=== PATIENT | female | born 1970 | race African-American/Black ===

== ENCOUNTER 2017-03-08 11:01 | Inpatient (IN) | payer BC, MEDICAID ==
[~2017-03-08] VITALS: Ht 162.6 cm; Wt 64.9 kg
[~2017-03-08 11:01] MED LIST: ASPI-1159 PO; ATIVAN PO; BUSP10TA3 PO; CARV12.545 PO; DOCU-138 PO; FURO40TA5 PO; LEVO50TA PO; LISI2.5T47 PO; PARO40TA PO; SPIR50TA26 PO; VENL-179 PO
[2017-03-08] MEDS ORDERED: SODIUM CHLORIDE 0.9% 1,000 ML IV ONE (11:09)
[2017-03-08] MEDS ORDERED: LEVOFLOXACIN 500MG PREMIX 100 ML IV ONE (11:15)
[2017-03-08] MEDS ORDERED: SODIUM CHLORIDE 0.9% 1000ML BAG (SEPSIS BOLUS) IV ONE (11:15)
[2017-03-08 11:36] LABS: BASOPHILS % 0.6 % (0.0-2.0); HEMATOCRIT. 33.7 % (36.0-48.0); HEMOGLOBIN. 11.6 g/dL (12.0-16.0); LYMPHOCYTES % 31.1 % (20.0-50.0); MEAN CORPUSCULAR HEMOGLOBIN 32.7 pg (28.0-32.0); MEAN CORPUSCULAR VOLUME 95.4 fL (81.0-99.0); MEAN PLATELET VOLUME 8.4 fl (7.4-10.4); MONOCYTES % 6.3 % (2.0-8.0); PLATELET 207 x1000/uL (130-400); RED BLOOD CELL COUNT 3.54 mill/uL (4.2-5.4); RED CELL DISTRIBUTION WIDTH 12.5 % (11.6-14.6)
[2017-03-08 11:43] LABS: HCG SCREEN NEGATIVE
[2017-03-08 11:44] LABS: CLARITY URINE CLOUDY (CLEAR); COLOR URINE YELLOW (YELLOW); GLUCOSE URINE NEGATIVE (NEGATIVE); KETONES URINE NEGATIVE (NEGATIVE); LEUKOCYTE ESTERASE URINE 1+ (NEGATIVE); NITRITE URINE NEGATIVE (NEGATIVE); OCCULT BLOOD URINE NEGATIVE (NEGATIVE); PROTEIN URINE TRACE (NEGATIVE); SPECIFIC GRAVITY URINE 1.029 (1.005-1.030)
[2017-03-08 11:45] LABS: INR 1.1; PARTIAL THROMBOPLASTIN TIME 28.6 sec (23.4-31.0); PROTHROMBIN TIME 10.9 sec (9.4-11.6)
[2017-03-08 11:46] LABS: CARBON DIOXIDE 27 mEq/L (21-32); CHLORIDE 110 mEq/L (98-107)
[2017-03-08 11:52] LABS: CREATINE KINASE 67 IU/L (26-192); CREATINE KINASE MB FRACTION < 0.5 ng/mL (0.5-3.6); TROPONIN I < 0.02 ng/mL (0.00-0.04)
[2017-03-08] MEDS ORDERED: FUROSEMIDE 20MG/2ML VIAL IVP ONE (12:15)
[2017-03-08] MEDS ORDERED: ONDANSETRON HCL 4MG/2ML VIAL IV ONE (12:30)
[2017-03-08] MEDS ORDERED: HYDROCODONE/ACETAMINOPHEN 5/325MG TABLET PO ONE (12:30)
[2017-03-08 18:11] VITALS: BP 153/76
[2017-03-08 18:15] VITALS: BP 153/76
[2017-03-08 19:41] VITALS: BP 136/80
[2017-03-08 20:00] VITALS: BP 136/80
[2017-03-08] MEDS: LORAZEPAM 2MG/ML CPJ IV PRN (21:00)
[2017-03-08] MEDS: MORPHINE SULFATE 2 MG/ML CPJ (NOT FOR IM USE) IV PRN (21:02)
[2017-03-08 22:00] VITALS: BP 102/49
[2017-03-08] MEDS ORDERED: ENOXAPARIN 40MG/0.4ML SYR SUBCUT SCH (22:30)
[2017-03-08] MEDS ORDERED: FUROSEMIDE 40MG/4ML VIAL IVP SCH (22:30)
[2017-03-08] MEDS ORDERED: IPRATROPIUM/ALBUTEROL 0.5-3(2.5)MG/3ML NEB INH PRN (22:30)
[2017-03-09] VITALS (7 sets, daily range): BP systolic 101–138; BP diastolic 52–76
[2017-03-09] MEDS ORDERED: DEXTROSE 50% WATER 50ML SYRINGE IV PRN
[2017-03-09 06:42] LABS: BASOPHILS % 0.4 % (0.0-2.0); EOSINOPHILS % 2.3 % (0.0-5.0); HEMATOCRIT. 30.8 % (36.0-48.0); HEMOGLOBIN. 10.6 g/dL (12.0-16.0); LYMPHOCYTES % 32.1 % (20.0-50.0); MEAN CORPUSCULAR HEMOGLOBIN 32.9 pg (28.0-32.0); MEAN CORPUSCULAR VOLUME 95.5 fL (81.0-99.0); MEAN PLATELET VOLUME 8.5 fl (7.4-10.4); MONOCYTES % 6.9 % (2.0-8.0); NEUTROPHILS % 58.3 % (40.0-76.0); PLATELET 192 x1000/uL (130-400); RED BLOOD CELL COUNT 3.23 mill/uL (4.2-5.4); RED CELL DISTRIBUTION WIDTH 12.5 % (11.6-14.6)
[2017-03-09 07:23] LABS: CARBON DIOXIDE 24 mEq/L (21-32); CHLORIDE 110 mEq/L (98-107); CREATINE KINASE 58 IU/L (26-192); CREATINE KINASE MB FRACTION < 0.5 ng/mL (0.5-3.6); TROPONIN I < 0.02 ng/mL (0.00-0.04)
[2017-03-09] MEDS ORDERED: LEVOTHYROXINE SODIUM 50MCG TABLET PO SCH (07:30)
[2017-03-09] MEDS: BLOOD SUGAR DIAGNOSTIC STRIP TEST SCH ×2 (07:52→12:02)
[2017-03-09] MEDS: MORPHINE SULFATE 2 MG/ML CPJ (NOT FOR IM USE) IV PRN ×2 (07:54→12:16)
[2017-03-09] MEDS: LORAZEPAM 2MG/ML CPJ IV PRN (07:58)
[2017-03-09] MEDS: INSULIN LISPRO 100 UNITS/ML SUBCUT SCH ×2 (08:00→12:27)
[2017-03-09] MEDS ORDERED: LISINOPRIL 2.5MG TABLET PO SCH (09:00)
[2017-03-09] MEDS ORDERED: SPIRONOLACTONE 50MG TABLET PO SCH (09:00)
[2017-03-09] MEDS ORDERED: BUSPIRONE HCL 10MG TABLET PO SCH (09:00)
[2017-03-09] MEDS ORDERED: ASPIRIN 81MG EC TABLET PO SCH (09:00)
[2017-03-09] MEDS ORDERED: DOCUSATE SODIUM 100MG CAPSULE PO SCH (09:00)
[2017-03-09] MEDS ORDERED: VENLAFAXINE HCL 37.5MG TABLET PO SCH (09:00)
[2017-03-09] MEDS ORDERED: FUROSEMIDE 40MG/4ML VIAL IVP SCH (09:00)
[2017-03-09] MEDS ORDERED: CARVEDILOL 12.5MG TABLET PO SCH (09:00)
[2017-03-09] MEDS ORDERED: POTASSIUM CHLORIDE 10MEQ TABLET SR PO SCH (10:00)
[2017-03-09] MEDS ORDERED: POTASSIUM CHLORIDE 20MEQ TABLET SR PO SCH (10:00)
[2017-03-09] MEDS ORDERED: LEVOFLOXACIN 500MG PREMIX 100 ML IV SCH (12:00)
== END 2017-03-09 15:00 | disposition home or self-care (01) | DRG 194 ==
LOC: EDBEDREQSVC 11:39 → EDBEDREQ 11:39 → ER 11:52 → EDBEDREQ 12:09 → EDBEDREQTM 12:09 → ENRESERV 16:41 → 5EST 18:04
PROVIDERS: ADMIT Internal Medicine; ATTEND Internal Medicine
DX: I11.0 Hypertensive heart disease with heart failure (principal); J18.9 Pneumonia, unspecified organism; I50.43 Acute on chronic combined systolic (congestive) and diastolic (congestive) heart failure; N39.0 Urinary tract infection, site not specified; E03.9 Hypothyroidism, unspecified; J40 Bronchitis, not specified as acute or chronic; E11.9 Type 2 diabetes mellitus without complications; F32.9 Major depressive disorder, single episode, unspecified; F41.9 Anxiety disorder, unspecified; Z82.49 Family history of ischemic heart disease and other diseases of the circulatory system; Z87.01 Personal history of pneumonia (recurrent); Z88.8 Allergy status to other drugs, medicaments and biological substances; Z79.899 Other long term (current) drug therapy; Z79.02 Long term (current) use of antithrombotics/antiplatelets; Z79.82 Long term (current) use of aspirin
CPT/HCPCS: 36415; 71010; 80048; 81001; 82550; 82553; 82962; 83605; 83880; 84484; 84703; 85025; 85610; 85730; 87040; 87086; 93005; 93970; 96361; 96365; 96366; 96375; 99285; J1650; J1940; J1956; J2060; J2270; J2405; J7030; J7050

== ENCOUNTER 2017-03-10 09:35 | Inpatient (IN) | payer MEDICAID ==
[~2017-03-10] VITALS: Ht 157.5 cm; Wt 66.3 kg
[2017-03-10] VITALS (17 sets, daily range): BP systolic 92–128; BP diastolic 48–72
[2017-03-10] MEDS ORDERED: SODIUM CHLORIDE 0.9% 1,000 ML IV ONE (09:58)
[2017-03-10] MEDS ORDERED: ACTIVATED CHARCOAL 50 G/240 ML TUBE PO ONE (10:00)
[2017-03-10] MEDS ORDERED: ONDANSETRON HCL 4MG/2ML VIAL IV ONE (10:00)
[2017-03-10 10:17] LABS: BASOPHILS % 0.5 % (0.0-2.0); EOSINOPHILS % 1.8 % (0.0-5.0); HEMATOCRIT. 33.5 % (36.0-48.0); HEMOGLOBIN. 11.5 g/dL (12.0-16.0); LYMPHOCYTES % 29.1 % (20.0-50.0); MEAN CORPUSCULAR HEMOGLOBIN 32.8 pg (28.0-32.0); MEAN CORPUSCULAR VOLUME 95.6 fL (81.0-99.0); MEAN PLATELET VOLUME 7.8 fl (7.4-10.4); MONOCYTES % 6.5 % (2.0-8.0); NEUTROPHILS % 62.1 % (40.0-76.0); PLATELET 207 x1000/uL (130-400); RED BLOOD CELL COUNT 3.51 mill/uL (4.2-5.4); RED CELL DISTRIBUTION WIDTH 12.7 % (11.6-14.6)
[2017-03-10 10:30] LABS: CARBON DIOXIDE 26 mEq/L (21-32); CHLORIDE 109 mEq/L (98-107); ETHANOL BLOOD < 10 mg/dL
[2017-03-10 10:44] LABS: HCG SCREEN NEGATIVE
[2017-03-10 10:53] LABS: CREATINE KINASE 68 IU/L (26-192); TROPONIN I < 0.02 ng/mL (0.00-0.04)
[2017-03-10 10:54] LABS: CREATINE KINASE MB FRACTION < 0.5 ng/mL (0.5-3.6)
[2017-03-10 11:42] LABS: *AMPHETAMINES SCREEN URINE NEGATIVE (NEGATIVE); *BARBITURATES SCREEN URINE NEGATIVE (NEGATIVE); *BENZODIAZEPINES SCREEN URINE PRESUMTIVE POSITIVE (NEGATIVE); *COCAINE SCREEN URINE NEGATIVE (NEGATIVE); CANNABINOID URINE SCREEN NEGATIVE (NEGATIVE); METHADONE URINE SCREEN NEGATIVE (NEGATIVE); OPIATES URINE SCREEN PRESUMTIVE POSITIVE (NEGATIVE); PHENCYCLIDINE URINE SCREEN NEGATIVE (NEGATIVE)
[2017-03-10] MEDS ORDERED: POTASSIUM CHLORIDE 20MEQ/PACKET PO NR (15:56)
[2017-03-11] VITALS (30 sets, daily range): BP systolic 87–119; BP diastolic 34–72
[2017-03-11] MEDS ORDERED: FUROSEMIDE 40MG TABLET PO NR
[2017-03-11] MEDS: HYDROCODONE/ACETAMINOPHEN 5/325MG TABLET PO PRN ×3 (00:12→16:06)
[2017-03-11 05:00] LABS: BASOPHILS % 0.4 % (0.0-2.0); EOSINOPHILS % 2.5 % (0.0-5.0); HEMATOCRIT. 30.7 % (36.0-48.0); HEMOGLOBIN. 10.7 g/dL (12.0-16.0); LYMPHOCYTES % 39.5 % (20.0-50.0); MEAN CORPUSCULAR HEMOGLOBIN 33.6 pg (28.0-32.0); MEAN CORPUSCULAR VOLUME 96.6 fL (81.0-99.0); MEAN PLATELET VOLUME 8.5 fl (7.4-10.4); MONOCYTES % 7.2 % (2.0-8.0); NEUTROPHILS % 50.4 % (40.0-76.0); PLATELET 183 x1000/uL (130-400); RED BLOOD CELL COUNT 3.18 mill/uL (4.2-5.4); RED CELL DISTRIBUTION WIDTH 12.8 % (11.6-14.6)
[2017-03-11 05:17] LABS: CARBON DIOXIDE 27 mEq/L (21-32); CHLORIDE 110 mEq/L (98-107)
[2017-03-11] MEDS ORDERED: LEVOTHYROXINE SODIUM 50MCG TABLET PO SCH (07:50)
[2017-03-11] MEDS: ASPIRIN 81MG EC TABLET PO SCH (08:41)
[2017-03-11] MEDS: FUROSEMIDE 40MG TABLET PO SCH (08:42)
[2017-03-11] MEDS ORDERED: SPIRONOLACTONE 50MG TABLET PO SCH (09:00)
[2017-03-11] MEDS: LISINOPRIL 2.5MG TABLET PO SCH (09:00)
[2017-03-11] MEDS: CARVEDILOL 12.5MG TABLET PO SCH ×2 (09:00→17:00)
[2017-03-11] MEDS ORDERED: LEVOTHYROXINE SODIUM 50MCG TABLET PO NR (10:00)
[2017-03-11] MEDS: LEVOFLOXACIN 500MG TABLET PO SCH (11:14)
[2017-03-11] MEDS ORDERED: LORAZEPAM 1MG TABLET PO PRN (21:15)
[2017-03-11] MEDS ORDERED: PAROXETINE HCL 40 MG PO SCH (21:15)
[2017-03-11] MEDS: LORAZEPAM 1MG TABLET PO PRN (21:54)
[2017-03-12] VITALS (12 sets, daily range): BP systolic 92–147; BP diastolic 32–94
[2017-03-12] MEDS: VENLAFAXINE HCL 37.5MG TABLET PO SCH ×2 (01:10→07:56)
[2017-03-12] MEDS: LEVOTHYROXINE SODIUM 100MCG TABLET PO SCH (06:29)
[2017-03-12] MEDS: FAMOTIDINE 20MG/2ML VIAL IV SCH (07:55)
[2017-03-12] MEDS: CARVEDILOL 12.5MG TABLET PO SCH (07:56)
[2017-03-12] MEDS: PAROXETINE HCL 20MG TABLET PO SCH (07:56)
[2017-03-12] MEDS: ASPIRIN 81MG EC TABLET PO SCH (07:56)
[2017-03-12] MEDS: ENOXAPARIN 40MG/0.4ML SYR SUBCUT SCH (07:57)
[2017-03-12] MEDS: FUROSEMIDE 40MG TABLET PO SCH (08:48)
[2017-03-12] MEDS: LISINOPRIL 2.5MG TABLET PO SCH (08:50)
[2017-03-12] MEDS: LEVOFLOXACIN 500MG TABLET PO SCH (11:45)
[2017-03-12] MEDS: LORAZEPAM 1MG TABLET PO PRN ×2 (11:47→22:50)
[2017-03-12] MEDS: HYDROCODONE/ACETAMINOPHEN 5/325MG TABLET PO PRN (16:08)
[2017-03-12] MEDS: CARVEDILOL 3.125 MG TABLET PO SCH (20:47)
[2017-03-12] MEDS: DIPHENHYDRAMINE 50MG/ML VIAL IV PRN (20:54)
[2017-03-13] VITALS (13 sets, daily range): BP systolic 102–136; BP diastolic 48–74
[2017-03-13] MEDS: LEVOTHYROXINE SODIUM 100MCG TABLET PO SCH (05:39)
[2017-03-13 06:58] LABS: BASOPHILS % 0.5 % (0.0-2.0); EOSINOPHILS % 2.5 % (0.0-5.0); HEMATOCRIT. 31.8 % (36.0-48.0); LYMPHOCYTES % 27.6 % (20.0-50.0); MEAN CORPUSCULAR HEMOGLOBIN 32.9 pg (28.0-32.0); MEAN CORPUSCULAR VOLUME 95.2 fL (81.0-99.0); MEAN PLATELET VOLUME 8.4 fl (7.4-10.4); NEUTROPHILS % 60.4 % (40.0-76.0); PLATELET 188 x1000/uL (130-400); RED BLOOD CELL COUNT 3.34 mill/uL (4.2-5.4); RED CELL DISTRIBUTION WIDTH 12.7 % (11.6-14.6)
[2017-03-13 07:41] LABS: CHLORIDE 110 mEq/L (98-107)
[2017-03-13 07:53] LABS: CARBON DIOXIDE 23 mEq/L (21-32)
[2017-03-13] MEDS: FAMOTIDINE 20MG/2ML VIAL IV SCH (08:21)
[2017-03-13] MEDS: DIPHENHYDRAMINE 50MG/ML VIAL IV PRN ×3 (08:21→21:07)
[2017-03-13] MEDS: ASPIRIN 81MG EC TABLET PO SCH (08:22)
[2017-03-13] MEDS: VENLAFAXINE HCL 37.5MG TABLET PO SCH (08:22)
[2017-03-13] MEDS: PAROXETINE HCL 20MG TABLET PO SCH (08:23)
[2017-03-13] MEDS: CARVEDILOL 3.125 MG TABLET PO SCH ×2 (08:23→21:00)
[2017-03-13] MEDS: FUROSEMIDE 40MG TABLET PO SCH (08:23)
[2017-03-13] MEDS: ENOXAPARIN 40MG/0.4ML SYR SUBCUT SCH (08:25)
[2017-03-13] MEDS: LISINOPRIL 2.5MG TABLET PO SCH (08:33)
[2017-03-13] MEDS: LEVOFLOXACIN 500MG TABLET PO SCH (11:04)
[2017-03-13] MEDS ORDERED: POTASSIUM CHLORIDE 20MEQ TABLET SR PO NR (11:30)
[2017-03-13] MEDS: SPIRONOLACTONE 25MG TABLET PO SCH (12:14)
[2017-03-13] MEDS: LORAZEPAM 1MG TABLET PO PRN ×2 (12:40→22:54)
[2017-03-13] MEDS: HYDROCODONE/ACETAMINOPHEN 5/325MG TABLET PO PRN (17:46)
[2017-03-14] VITALS (10 sets, daily range): BP systolic 102–126; BP diastolic 45–94
[2017-03-14] MEDS: DIPHENHYDRAMINE 50MG/ML VIAL IV PRN ×3 (03:11→18:06)
[2017-03-14] MEDS: LEVOTHYROXINE SODIUM 100MCG TABLET PO SCH (05:12)
[2017-03-14 06:58] LABS: EOSINOPHILS % 2.6 % (0.0-5.0); HEMATOCRIT. 32.3 % (36.0-48.0); HEMOGLOBIN. 11.1 g/dL (12.0-16.0); LYMPHOCYTES % 30.8 % (20.0-50.0); MEAN CORPUSCULAR HEMOGLOBIN 33.1 pg (28.0-32.0); MEAN CORPUSCULAR VOLUME 96.6 fL (81.0-99.0); MEAN PLATELET VOLUME 8.5 fl (7.4-10.4); MONOCYTES % 7.8 % (2.0-8.0); NEUTROPHILS % 57.8 % (40.0-76.0); PLATELET 190 x1000/uL (130-400); RED BLOOD CELL COUNT 3.34 mill/uL (4.2-5.4); RED CELL DISTRIBUTION WIDTH 12.8 % (11.6-14.6)
[2017-03-14 07:44] LABS: CARBON DIOXIDE 24 mEq/L (21-32); CHLORIDE 109 mEq/L (98-107)
[2017-03-14] MEDS: FAMOTIDINE 20MG/2ML VIAL IV SCH (08:28)
[2017-03-14] MEDS: VENLAFAXINE HCL 37.5MG TABLET PO SCH (08:29)
[2017-03-14] MEDS: ASPIRIN 81MG EC TABLET PO SCH (08:30)
[2017-03-14] MEDS: PAROXETINE HCL 20MG TABLET PO SCH (08:30)
[2017-03-14] MEDS: ENOXAPARIN 40MG/0.4ML SYR SUBCUT SCH (08:31)
[2017-03-14] MEDS: SPIRONOLACTONE 25MG TABLET PO SCH (08:32)
[2017-03-14] MEDS: LISINOPRIL 2.5MG TABLET PO SCH (08:32)
[2017-03-14] MEDS: CARVEDILOL 3.125 MG TABLET PO SCH (08:32)
[2017-03-14] MEDS ORDERED: FUROSEMIDE 40MG TABLET PO SCH (09:00)
[2017-03-14] MEDS ORDERED: POTASSIUM CHLORIDE 20MEQ TABLET SR PO SCH (09:00)
[2017-03-14] MEDS: LORAZEPAM 1MG TABLET PO PRN (11:20)
[2017-03-14] MEDS: LEVOFLOXACIN 500MG TABLET PO SCH (11:20)
== END 2017-03-14 20:46 | DRG 812 ==
LOC: ER 09:50 → CVICU 10:46 → EDBEDREQ 10:49 → ENRESERV 13:11 → 3WST 03-11 18:24 → 5WST 03-14 14:45
PROVIDERS: ADMIT Internal Medicine; ATTEND Internal Medicine
DX: T42.4X1A Poisoning by benzodiazepines, accidental (unintentional), initial encounter (principal); I50.43 Acute on chronic combined systolic (congestive) and diastolic (congestive) heart failure; I95.9 Hypotension, unspecified; I42.9 Cardiomyopathy, unspecified; I11.0 Hypertensive heart disease with heart failure; I08.1 Rheumatic disorders of both mitral and tricuspid valves; E11.9 Type 2 diabetes mellitus without complications; E87.6 Hypokalemia; E03.9 Hypothyroidism, unspecified; F41.9 Anxiety disorder, unspecified; F32.9 Major depressive disorder, single episode, unspecified; Z88.8 Allergy status to other drugs, medicaments and biological substances; Z79.82 Long term (current) use of aspirin; Z79.899 Other long term (current) drug therapy; Z87.01 Personal history of pneumonia (recurrent); Z87.440 Personal history of urinary (tract) infections; Y92.89 Other specified places as the place of occurrence of the external cause; Z91.5 Personal history of self-harm; T43.221A Poisoning by selective serotonin reuptake inhibitors, accidental (unintentional), initial encounter
CPT/HCPCS: 36415; 71010; 80048; 80305; 80307; 80329; 82550; 82553; 82962; 83735; 83880; 84443; 84484; 84703; 85025; 87086; 93005; 96361; 96374; 99291; G0482; J1200; J1650; J2405; J3490; J7030

== ENCOUNTER 2017-08-11 12:37 | Emergency (ER) | payer MEDICAID, OTHER ==
[~2017-08-11] VITALS: Ht 157.5 cm; Wt 62.0 kg
[~2017-08-11 12:37] MED LIST changes: +ALBU18HF2 IH; -ATIVAN PO; +BUDE0.5A5 IH; +DIAZ10TA PO; +DOXE25CA3 PO; +IBUP-2030 PO; +IPRA3AMP9 HHN; +NITR0.4T49 SL; +P20 PO; -VENL-179 PO; +VENL225T3 PO
[2017-08-11 16:08] LABS: BASOPHILS % 0.9 % (0.0-2.0); EOSINOPHILS % 0.6 % (0.0-5.0); HEMATOCRIT. 35.6 % (36.0-48.0); HEMOGLOBIN. 12.2 g/dL (12.0-16.0); LYMPHOCYTES % 32.3 % (20.0-50.0); MEAN CORPUSCULAR HEMOGLOBIN 33.7 pg (28.0-32.0); MEAN CORPUSCULAR VOLUME 98.6 fL (81.0-99.0); MEAN PLATELET VOLUME 7.8 fl (7.4-10.4); MONOCYTES % 8.4 % (2.0-8.0); NEUTROPHILS % 57.8 % (40.0-76.0); PLATELET 240 x1000/uL (130-400); RED BLOOD CELL COUNT 3.61 mill/uL (4.2-5.4); RED CELL DISTRIBUTION WIDTH 14.6 % (11.6-14.6)
[2017-08-11 16:14] LABS: INR 0.9; PROTHROMBIN TIME 9.6 sec (9.4-11.6)
[2017-08-11 16:23] LABS: CARBON DIOXIDE 25 mEq/L (21-32); CHLORIDE 109 mEq/L (98-107); TROPONIN I < 0.02 ng/mL (0.00-0.04)
[2017-08-11] MEDS ORDERED: IBUPROFEN 600MG TABLET PO ONE (19:15)
[2017-08-11 19:55] VITALS: BP 139/80
== END 2017-08-11 21:16 | disposition home or self-care (01) ==
LOC: ER 13:58
DX: R07.9 Chest pain, unspecified (principal); R06.02 Shortness of breath; F41.9 Anxiety disorder, unspecified; I11.0 Hypertensive heart disease with heart failure; I50.9 Heart failure, unspecified; J44.9 Chronic obstructive pulmonary disease, unspecified; E11.9 Type 2 diabetes mellitus without complications; E03.9 Hypothyroidism, unspecified; F32.9 Major depressive disorder, single episode, unspecified; F14.10 Cocaine abuse, uncomplicated; F17.200 Nicotine dependence, unspecified, uncomplicated; Z79.82 Long term (current) use of aspirin; Z88.8 Allergy status to other drugs, medicaments and biological substances
CPT/HCPCS: 36415; 71045; 80053; 83605; 83880; 84484; 85025; 85379; 85610; 87040; 93005; 99285

== ENCOUNTER 2017-12-29 15:54 | Inpatient (IN) | payer MEDICAID ==
[~2017-12-29] VITALS: Ht 157.5 cm; Wt 68.9 kg
[~2017-12-29 15:54] MED LIST changes: +ATOR40TA70 PO; +BACL-141 PO; -DOCU-138 PO; +HYDR10SY11 PO; -IBUP-2030 PO; -NITR0.4T49 SL; -PARO40TA PO; -SPIR50TA26 PO; +SPIR50TA5 PO
[2017-12-29 16:41] LABS: BASOPHILS % 0.6 % (0.0-2.0); EOSINOPHILS % 5.5 % (0.0-5.0); HEMATOCRIT. 34.5 % (36.0-48.0); HEMOGLOBIN. 11.9 g/dL (12.0-16.0); LYMPHOCYTES % 33.2 % (20.0-50.0); MEAN CORPUSCULAR VOLUME 95.6 fL (81.0-99.0); MEAN PLATELET VOLUME 7.9 fl (7.4-10.4); MONOCYTES % 7.8 % (2.0-8.0); NEUTROPHILS % 52.9 % (40.0-76.0); PLATELET 231 x1000/uL (130-400); RED BLOOD CELL COUNT 3.61 mill/uL (4.2-5.4); RED CELL DISTRIBUTION WIDTH 13.1 % (11.6-14.6)
[2017-12-29] MEDS ORDERED: ASPIRIN 81MG TABLET PO STA (16:41)
[2017-12-29 16:42] LABS: CHLORIDE 112 mEq/L (98-107)
[2017-12-29] MEDS ORDERED: NITROGLYCERIN 0.4MG TABLET SL SL PRN (16:45)
[2017-12-29 16:46] LABS: PARTIAL THROMBOPLASTIN TIME 25.3 sec (23.4-31.0); PROTHROMBIN TIME 10.7 sec (9.4-11.6)
[2017-12-29] MEDS ORDERED: VANCOMYCIN 1 G PREMIX 200 ML IV ONE (18:45)
[2017-12-29] MEDS ORDERED: PIPERACILLIN/TAZ 3.375G PREMIX 50 ML IV ONE (18:45)
[2017-12-29] MEDS ORDERED: SODIUM CHLORIDE 0.9% 1000ML BAG (SEPSIS BOLUS) IV ONE (18:45)
[2017-12-29] MEDS ORDERED: ONDANSETRON HCL 4MG/2ML VIAL IV STA (18:58)
[2017-12-29] MEDS ORDERED: MORPHINE SULFATE 4 MG/ML CPJ (NOT FOR IM USE) IV STA (18:58)
[2017-12-29] MEDS ORDERED: MAGNESIUM/ALUMINUM HYDROXIDE/SIMETHICONE 30ML UDC PO PRN (19:30)
[2017-12-29] MEDS ORDERED: CLONIDINE 0.1MG TABLET PO PRN (19:30)
[2017-12-29] MEDS ORDERED: IPRATROPIUM/ALBUTEROL 0.5-3(2.5)MG/3ML NEB INH PRN (19:30)
[2017-12-29] MEDS ORDERED: ACETAMINOPHEN 325MG TABLET PO PRN (19:30)
[2017-12-29] MEDS ORDERED: DOCUSATE SODIUM 100MG CAPSULE PO PRN (19:30)
[2017-12-29] MEDS ORDERED: ONDANSETRON HCL 4MG/2ML VIAL IV PRN (19:30)
[2017-12-29 19:33] LABS: CLARITY URINE CLOUDY (CLEAR); COLOR URINE YELLOW (YELLOW); KETONES URINE NEGATIVE (NEGATIVE); LEUKOCYTE ESTERASE URINE NEGATIVE (NEGATIVE); NITRITE URINE NEGATIVE (NEGATIVE); OCCULT BLOOD URINE 3+ (NEGATIVE); PROTEIN URINE NEGATIVE (NEGATIVE); SPECIFIC GRAVITY URINE 1.029 (1.005-1.030)
[2017-12-29] MEDS ORDERED: KETOROLAC 30MG/ML VIAL IV ONE (20:15)
[2017-12-29 20:28] LABS: CHLORIDE 114 mEq/L (98-107)
[2017-12-29] MEDS ORDERED: MORPHINE SULFATE 4 MG/ML CPJ (NOT FOR IM USE) IV ONE (21:15)
[2017-12-30] VITALS: BP 110/72
[2017-12-30] MEDS ORDERED: LEVO125T PO (00:01)
[2017-12-30] MEDS ORDERED: FURO20TA4 PO (00:01)
[2017-12-30] MEDS ORDERED: BUSP15TA3 PO (00:01)
[2017-12-30] MEDS ORDERED: DOCU-138 PO (00:06)
[2017-12-30] MEDS ORDERED: POTA10TA2 PO (00:06)
[2017-12-30] MEDS ORDERED: HYDR-4001 PO (00:06)
[2017-12-30] MEDS ORDERED: ONDA4SOL2 MT (00:06)
[2017-12-30] MEDS ORDERED: IBUP-2030 PO (00:06)
[2017-12-30] MEDS ORDERED: DEXTROSE 50% WATER 50ML SYRINGE IV PRN (00:30)
[2017-12-30 01:53] LABS: *AMPHETAMINES SCREEN URINE NEGATIVE (NEGATIVE); *BARBITURATES SCREEN URINE NEGATIVE (NEGATIVE)
[2017-12-30 01:54] LABS: *COCAINE SCREEN URINE NEGATIVE (NEGATIVE); CANNABINOID URINE SCREEN NEGATIVE (NEGATIVE); METHADONE URINE SCREEN NEGATIVE (NEGATIVE); PHENCYCLIDINE URINE SCREEN NEGATIVE (NEGATIVE)
[2017-12-30 02:09] LABS: *BENZODIAZEPINES SCREEN URINE PRESUMTIVE POSITIVE (NEGATIVE); OPIATES URINE SCREEN PRESUMTIVE POSITIVE (NEGATIVE)
[2017-12-30 04:00] VITALS: BP 97/58
[2017-12-30] MEDS: LORAZEPAM 0.5MG TABLET PO PRN ×4 (05:26→20:49)
[2017-12-30] MEDS: HYDROCODONE/ACETAMINOPHEN 5/325MG TABLET PO PRN ×2 (05:28→10:04)
[2017-12-30] MEDS: BLOOD SUGAR DIAGNOSTIC STRIP TEST SCH ×4 (05:28→21:02)
[2017-12-30 07:42] LABS: BASOPHILS % 0.4 % (0.0-2.0); EOSINOPHILS % 5.6 % (0.0-5.0); HEMATOCRIT. 28.7 % (36.0-48.0); HEMOGLOBIN. 9.8 g/dL (12.0-16.0); MEAN CORPUSCULAR HEMOGLOBIN 32.9 pg (28.0-32.0); MEAN CORPUSCULAR VOLUME 96.4 fL (81.0-99.0); MEAN PLATELET VOLUME 8.2 fl (7.4-10.4); MONOCYTES % 7.8 % (2.0-8.0); NEUTROPHILS % 55.2 % (40.0-76.0); PLATELET 167 x1000/uL (130-400); RED BLOOD CELL COUNT 2.97 mill/uL (4.2-5.4); RED CELL DISTRIBUTION WIDTH 13.2 % (11.6-14.6)
[2017-12-30 08:00] VITALS: BP 106/71
[2017-12-30] MEDS: INSULIN LISPRO 100 UNITS/ML SUBCUT SCH ×4 (08:10→21:00)
[2017-12-30 08:51] LABS: CREATINE KINASE 44 IU/L (26-192); T4 FREE 0.69 ng/dL (0.76-1.46)
[2017-12-30 08:56] LABS: HDL CHOLESTEROL 18 mg/dL (40-59)
[2017-12-30 08:59] LABS: LDL CHOLESTEROL 83 mg/dL (5-100)
[2017-12-30] MEDS ORDERED: ENOXAPARIN 40MG/0.4ML SYR SUBCUT SCH (09:00)
[2017-12-30 09:02] LABS: CREATINE KINASE MB FRACTION < 0.5 ng/mL (0.5-3.6)
[2017-12-30] MEDS: LISINOPRIL 10MG TABLET PO SCH (11:30)
[2017-12-30 12:00] VITALS: BP_SYST 102; BP_SYST 125; BP_DIAS 66; BP_DIAS 72
[2017-12-30] MEDS: MORPHINE SULFATE 4 MG/ML CPJ (NOT FOR IM USE) IV PRN ×2 (15:12→20:49)
[2017-12-30 16:00] VITALS: BP 125/72
[2017-12-30 18:06] LABS: CREATINE KINASE 47 IU/L (26-192)
[2017-12-30 18:07] LABS: CREATINE KINASE MB FRACTION < 0.5 ng/mL (0.5-3.6)
[2017-12-30 20:00] VITALS: BP 114/61
[2017-12-30] MEDS: ATORVASTATIN CALCIUM 40MG TABLET PO SCH (20:50)
[2017-12-31] VITALS (7 sets, daily range): BP systolic 101–133; BP diastolic 63–84
[2017-12-31] MEDS: MORPHINE SULFATE 4 MG/ML CPJ (NOT FOR IM USE) IV PRN ×5 (00:36→20:17)
[2017-12-31] MEDS: BLOOD SUGAR DIAGNOSTIC STRIP TEST SCH ×4 (06:56→20:13)
[2017-12-31 07:26] LABS: BASOPHILS % 0.5 % (0.0-2.0); EOSINOPHILS % 6.4 % (0.0-5.0); HEMATOCRIT. 29.4 % (36.0-48.0); HEMOGLOBIN. 10.1 g/dL (12.0-16.0); LYMPHOCYTES % 35.1 % (20.0-50.0); MEAN CORPUSCULAR HEMOGLOBIN 32.9 pg (28.0-32.0); MEAN CORPUSCULAR VOLUME 95.8 fL (81.0-99.0); MEAN PLATELET VOLUME 8.6 fl (7.4-10.4); MONOCYTES % 7.8 % (2.0-8.0); NEUTROPHILS % 50.2 % (40.0-76.0); PLATELET 170 x1000/uL (130-400); RED BLOOD CELL COUNT 3.07 mill/uL (4.2-5.4); RED CELL DISTRIBUTION WIDTH 13.4 % (11.6-14.6)
[2017-12-31] MEDS: INSULIN LISPRO 100 UNITS/ML SUBCUT SCH ×4 (07:32→20:16)
[2017-12-31] MEDS: LEVOTHYROXINE SODIUM 125MCG TABLET PO SCH (07:39)
[2017-12-31 08:01] LABS: CHLORIDE 114 mEq/L (98-107)
[2017-12-31] MEDS: LISINOPRIL 10MG TABLET PO SCH (08:06)
[2017-12-31] MEDS: CARVEDILOL 12.5MG TABLET PO SCH (08:06)
[2017-12-31] MEDS: SPIRONOLACTONE 50MG TABLET PO SCH (08:07)
[2017-12-31] MEDS: LORAZEPAM 0.5MG TABLET PO PRN ×3 (08:15→23:55)
[2017-12-31 08:17] LABS: TOTAL IRON BINDING CAPACITY 299 ug/dL (250-450)
[2017-12-31] MEDS: LEVOFLOXACIN 500MG PREMIX 100 ML IV SCH (10:38)
[2017-12-31] MEDS: ATORVASTATIN CALCIUM 40MG TABLET PO SCH (20:17)
[2018-01-01] MEDS: MORPHINE SULFATE 4 MG/ML CPJ (NOT FOR IM USE) IV PRN ×3 (00:28→08:24)
[2018-01-01 04:24] VITALS: BP 100/55
[2018-01-01] MEDS: BLOOD SUGAR DIAGNOSTIC STRIP TEST SCH (07:18)
[2018-01-01] MEDS: INSULIN LISPRO 100 UNITS/ML SUBCUT SCH (07:18)
[2018-01-01] MEDS: LEVOTHYROXINE SODIUM 125MCG TABLET PO SCH (07:18)
[2018-01-01 07:51] LABS: BASOPHILS % 0.5 % (0.0-2.0); EOSINOPHILS % 6.5 % (0.0-5.0); HEMATOCRIT. 29.7 % (36.0-48.0); HEMOGLOBIN. 10.2 g/dL (12.0-16.0); MEAN CORPUSCULAR HEMOGLOBIN 32.4 pg (28.0-32.0); MEAN CORPUSCULAR VOLUME 94.9 fL (81.0-99.0); MEAN PLATELET VOLUME 8.5 fl (7.4-10.4); MONOCYTES % 6.7 % (2.0-8.0); NEUTROPHILS % 52.3 % (40.0-76.0); PLATELET 189 x1000/uL (130-400); RED BLOOD CELL COUNT 3.13 mill/uL (4.2-5.4); RED CELL DISTRIBUTION WIDTH 13.1 % (11.6-14.6)
[2018-01-01 08:00] VITALS: BP 109/63
[2018-01-01] MEDS: LISINOPRIL 10MG TABLET PO SCH (08:23)
[2018-01-01] MEDS: SPIRONOLACTONE 50MG TABLET PO SCH (08:23)
[2018-01-01] MEDS: CARVEDILOL 12.5MG TABLET PO SCH ×2 (08:23→10:42)
[2018-01-01 08:26] LABS: CHLORIDE 112 mEq/L (98-107)
[2018-01-01] MEDS: LEVOFLOXACIN 500MG PREMIX 100 ML IV SCH (09:04)
[2018-01-01] MEDS: LORAZEPAM 0.5MG TABLET PO PRN (10:31)
[2018-01-01] MEDS ORDERED: POTASSIUM CHLORIDE 10MEQ TABLET SR PO SCH (10:39)
[2018-01-01] MEDS ORDERED: FUROSEMIDE 40MG TABLET PO SCH (10:45)
[2018-01-01 11:36] VITALS: BP 107/62
== END 2018-01-01 12:08 | disposition home or self-care (01) | DRG 139 ==
LOC: ER 16:27 → 7WST 19:04 → EDBEDREQ 19:35 → ENRESERV 20:42
PROVIDERS: ADMIT Internal Medicine; ATTEND Internal Medicine
DX: J18.9 Pneumonia, unspecified organism (principal); I42.9 Cardiomyopathy, unspecified; I11.0 Hypertensive heart disease with heart failure; J44.9 Chronic obstructive pulmonary disease, unspecified; I50.20 Unspecified systolic (congestive) heart failure; E11.9 Type 2 diabetes mellitus without complications; D64.9 Anemia, unspecified; E03.9 Hypothyroidism, unspecified; E78.5 Hyperlipidemia, unspecified; F17.200 Nicotine dependence, unspecified, uncomplicated; F31.9 Bipolar disorder, unspecified; F41.9 Anxiety disorder, unspecified; Z87.01 Personal history of pneumonia (recurrent); Z87.442 Personal history of urinary calculi; Z79.899 Other long term (current) drug therapy; Z79.82 Long term (current) use of aspirin; Z88.8 Allergy status to other drugs, medicaments and biological substances; Z87.440 Personal history of urinary (tract) infections
CPT/HCPCS: 36415; 71045; 80048; 80053; 80061; 80305; 81003; 82550; 82553; 82962; 83540; 83550; 83605; 83735; 83880; 84439; 84443; 84481; 84484; 85025; 85379; 85610; 85730; 87040; 87086; 89055; 93005; 93306; 93970; 96365; 96368; 96375; 96376; 99285; J1650; J1956; J2270; J2405; J2543; J3370; J7030; J7050

== ENCOUNTER 2018-01-25 12:02 | Inpatient (IN) | payer MEDICAID ==
[~2018-01-25] VITALS: Ht 157.5 cm; Wt 62.8 kg
[~2018-01-25 12:02] MED LIST changes: -BUSP10TA3 PO; +BUSP15TA3 PO; +DOCU-138 PO; -DOXE25CA3 PO; +FURO20TA4 PO; -FURO40TA5 PO; +HYDR-4001 PO; -HYDR10SY11 PO; +IBUP-2030 PO; +LEVO125T PO; -LEVO50TA PO; -LISI2.5T47 PO; +ONDA4SOL2 MT; -P20 PO; +POTA10TA2 PO; -VENL225T3 PO
[2018-01-25] MEDS ORDERED: ASPIRIN 81MG TABLET PO STA (12:55)
[2018-01-25 13:10] LABS: BASOPHILS % 0.6 % (0.0-2.0); EOSINOPHILS % 4.4 % (0.0-5.0); HEMATOCRIT. 36.6 % (36.0-48.0); HEMOGLOBIN. 12.4 g/dL (12.0-16.0); LYMPHOCYTES % 27.2 % (20.0-50.0); MEAN CORPUSCULAR HEMOGLOBIN 32.3 pg (28.0-32.0); MEAN CORPUSCULAR VOLUME 95.4 fL (81.0-99.0); MEAN PLATELET VOLUME 8.3 fl (7.4-10.4); MONOCYTES % 8.3 % (2.0-8.0); NEUTROPHILS % 59.5 % (40.0-76.0); PLATELET 181 x1000/uL (130-400); RED BLOOD CELL COUNT 3.84 mill/uL (4.2-5.4); RED CELL DISTRIBUTION WIDTH 12.5 % (11.6-14.6)
[2018-01-25 13:16] LABS: CHLORIDE 112 mEq/L (98-107)
[2018-01-25 13:21] LABS: D-DIMER 0.24 mg/L FEU (<0.50); PARTIAL THROMBOPLASTIN TIME 27.1 sec (23.4-31.0); PROTHROMBIN TIME 10.7 sec (9.4-11.6)
[2018-01-25] MEDS: NITROGLYCERIN 0.4MG TABLET SL SL PRN ×2 (13:31→15:23)
[2018-01-25] MEDS ORDERED: MORPHINE SULFATE 4 MG/ML CPJ (NOT FOR IM USE) IV STA (14:14)
[2018-01-25] MEDS ORDERED: ONDANSETRON HCL 4MG/2ML VIAL IV STA (14:14)
[2018-01-25] MEDS ORDERED: SODIUM CHLORIDE 0.9% 1,000 ML IV ONE (14:51)
[2018-01-25] MEDS ORDERED: ONDANSETRON HCL 4MG/2ML VIAL IV PRN (16:45)
[2018-01-25] MEDS ORDERED: DIAZEPAM 5 MG TABLET PO PRN (16:45)
[2018-01-25] MEDS ORDERED: IPRATROPIUM/ALBUTEROL 0.5-3(2.5)MG/3ML NEB HHN PRN (16:45)
[2018-01-25] MEDS: HYDROCODONE/ACETAMINOPHEN 5/325MG TABLET PO PRN (17:10)
[2018-01-25 18:45] VITALS: BP 110/79
[2018-01-25 19:35] VITALS: BP 98/66
[2018-01-25 20:30] VITALS: BP 98/66
[2018-01-25] MEDS: ATORVASTATIN CALCIUM 40MG TABLET PO SCH (21:36)
[2018-01-26 00:28] VITALS: BP 97/58
[2018-01-26 04:10] VITALS: BP 114/62
[2018-01-26] MEDS: MORPHINE SULFATE 4 MG/ML CPJ (NOT FOR IM USE) IV PRN ×2 (04:15→18:38)
[2018-01-26] MEDS: LEVOTHYROXINE SODIUM 125MCG TABLET PO SCH (06:38)
[2018-01-26 08:00] VITALS: BP 109/58
[2018-01-26] MEDS: ASPIRIN 81MG TABLET PO SCH (08:33)
[2018-01-26] MEDS ORDERED: FUROSEMIDE 20MG TABLET PO SCH (09:00)
[2018-01-26] MEDS: BUDESONIDE 0.5MG/2ML NEB INH SCH ×2 (12:52→21:15)
[2018-01-26 12:57] VITALS: BP 112/63
[2018-01-26] MEDS: HYDROCODONE/ACETAMINOPHEN 5/325MG TABLET PO PRN (14:07)
[2018-01-26 16:30] VITALS: BP 118/67
[2018-01-26 17:19] LABS: UCG SCREEN NEGATIVE
[2018-01-26 17:36] LABS: *BARBITURATES SCREEN URINE NEGATIVE (NEGATIVE); *COCAINE SCREEN URINE NEGATIVE (NEGATIVE); CANNABINOID URINE SCREEN NEGATIVE (NEGATIVE); METHADONE URINE SCREEN NEGATIVE (NEGATIVE); PHENCYCLIDINE URINE SCREEN NEGATIVE (NEGATIVE)
[2018-01-26 17:37] LABS: *AMPHETAMINES SCREEN URINE NEGATIVE (NEGATIVE)
[2018-01-26 17:38] LABS: *BENZODIAZEPINES SCREEN URINE PRESUMTIVE POSITIVE (NEGATIVE); OPIATES URINE SCREEN PRESUMTIVE POSITIVE (NEGATIVE)
[2018-01-26] MEDS: CARVEDILOL 12.5MG TABLET PO SCH (18:37)
[2018-01-26 20:00] VITALS: BP 110/62
[2018-01-26] MEDS: ATORVASTATIN CALCIUM 40MG TABLET PO SCH (20:33)
[2018-01-26] MEDS: DIAZEPAM 5 MG TABLET PO PRN (20:43)
[2018-01-27] VITALS (7 sets, daily range): BP systolic 82–108; BP diastolic 51–71
[2018-01-27] MEDS: MORPHINE SULFATE 4 MG/ML CPJ (NOT FOR IM USE) IV PRN ×4 (00:35→21:27)
[2018-01-27] MEDS: BUDESONIDE 0.5MG/2ML NEB INH SCH ×2 (01:10→08:14)
[2018-01-27] MEDS: LEVOTHYROXINE SODIUM 125MCG TABLET PO SCH (06:15)
[2018-01-27 06:41] LABS: BASOPHILS % 0.5 % (0.0-2.0); EOSINOPHILS % 4.2 % (0.0-5.0); HEMATOCRIT. 31.2 % (36.0-48.0); HEMOGLOBIN. 10.6 g/dL (12.0-16.0); LYMPHOCYTES % 42.4 % (20.0-50.0); MEAN CORPUSCULAR HEMOGLOBIN 32.5 pg (28.0-32.0); MEAN PLATELET VOLUME 8.5 fl (7.4-10.4); MONOCYTES % 7.3 % (2.0-8.0); NEUTROPHILS % 45.6 % (40.0-76.0); PLATELET 164 x1000/uL (130-400); RED BLOOD CELL COUNT 3.25 mill/uL (4.2-5.4); RED CELL DISTRIBUTION WIDTH 12.2 % (11.6-14.6)
[2018-01-27 08:15] LABS: CHLORIDE 111 mEq/L (98-107)
[2018-01-27] MEDS ORDERED: TRAZ-132 PO (08:38)
[2018-01-27] MEDS: ASPIRIN 81MG TABLET PO SCH (08:48)
[2018-01-27] MEDS: CARVEDILOL 12.5MG TABLET PO SCH (08:48)
[2018-01-27 08:51] LABS: CREATINE KINASE 38 IU/L (26-192)
[2018-01-27 09:02] LABS: CREATINE KINASE MB FRACTION < 0.5 ng/mL (0.5-3.6)
[2018-01-27] MEDS: POTASSIUM CHLORIDE 10MEQ TABLET SR PO SCH (14:12)
[2018-01-27] MEDS: FUROSEMIDE 40MG TABLET PO SCH (14:13)
[2018-01-27] MEDS: LOSARTAN POTASSIUM 25 MG TABLET PO SCH (14:13)
[2018-01-27] MEDS: DIAZEPAM 5 MG TABLET PO PRN (16:34)
[2018-01-27] MEDS: CARVEDILOL 6.25 MG TABLET PO SCH (21:00)
[2018-01-27] MEDS ORDERED: TRAZODONE HCL 100MG TABLET PO SCH (21:00)
[2018-01-27] MEDS: ATORVASTATIN CALCIUM 40MG TABLET PO SCH (21:21)
[2018-01-28] VITALS: BP 95/51
[2018-01-28 04:00] VITALS: BP 95/51
[2018-01-28] MEDS: LEVOTHYROXINE SODIUM 125MCG TABLET PO SCH (06:19)
[2018-01-28 08:00] VITALS: BP 107/71
[2018-01-28 08:15] LABS: BASOPHILS % 0.4 % (0.0-2.0); EOSINOPHILS % 4.7 % (0.0-5.0); LYMPHOCYTES % 32.5 % (20.0-50.0); MEAN CORPUSCULAR VOLUME 93.8 fL (81.0-99.0); MEAN PLATELET VOLUME 9.1 fl (7.4-10.4); MONOCYTES % 7.6 % (2.0-8.0); NEUTROPHILS % 54.8 % (40.0-76.0); PLATELET 184 x1000/uL (130-400); RED BLOOD CELL COUNT 3.92 mill/uL (4.2-5.4); RED CELL DISTRIBUTION WIDTH 12.4 % (11.6-14.6)
[2018-01-28 08:20] LABS: HEMOGLOBIN. 12.5 g/dL (12.0-16.0)
[2018-01-28 08:21] LABS: HEMATOCRIT. 36.8 % (36.0-48.0)
[2018-01-28] MEDS: FUROSEMIDE 40MG TABLET PO SCH (08:36)
[2018-01-28] MEDS: ASPIRIN 81MG TABLET PO SCH (08:36)
[2018-01-28] MEDS: POTASSIUM CHLORIDE 10MEQ TABLET SR PO SCH (08:36)
[2018-01-28] MEDS: LOSARTAN POTASSIUM 25 MG TABLET PO SCH (08:37)
[2018-01-28] MEDS: CARVEDILOL 6.25 MG TABLET PO SCH (08:38)
[2018-01-28] MEDS: DIAZEPAM 5 MG TABLET PO PRN (08:46)
[2018-01-28 09:10] LABS: CHLORIDE 106 mEq/L (98-107)
[2018-01-28] MEDS ORDERED: POTASSIUM CHLORIDE 20MEQ TABLET SR PO SCH (13:00)
[2018-01-28 16:14] VITALS: BP 120/58
== END 2018-01-28 16:55 | disposition home or self-care (01) | DRG 203 ==
LOC: ER 12:02 → 8WST 16:29 → EDBEDREQ 16:30 → EDBEDREQTM 16:30 → ENRESERV 17:29
PROVIDERS: ADMIT Internal Medicine; ATTEND Internal Medicine
DX: M94.0 Chondrocostal junction syndrome [Tietze] (principal); I50.23 Acute on chronic systolic (congestive) heart failure; I42.0 Dilated cardiomyopathy; E87.8 Other disorders of electrolyte and fluid balance, not elsewhere classified; E03.9 Hypothyroidism, unspecified; F31.9 Bipolar disorder, unspecified; I49.3 Ventricular premature depolarization; I11.0 Hypertensive heart disease with heart failure; F41.9 Anxiety disorder, unspecified; E11.9 Type 2 diabetes mellitus without complications; J98.01 Acute bronchospasm; J44.9 Chronic obstructive pulmonary disease, unspecified; E78.5 Hyperlipidemia, unspecified; K59.00 Constipation, unspecified; Z87.891 Personal history of nicotine dependence; Z87.440 Personal history of urinary (tract) infections; Z87.01 Personal history of pneumonia (recurrent); I25.2 Old myocardial infarction; Z88.8 Allergy status to other drugs, medicaments and biological substances; Z79.899 Other long term (current) drug therapy; Z79.82 Long term (current) use of aspirin
CPT/HCPCS: 36415; 71045; 80053; 80305; 81025; 82550; 82553; 83690; 83735; 83880; 84145; 84443; 84484; 85025; 85379; 85610; 85730; 93005; 93970; 96374; 96375; 99285; J2270; J2405; J7030; J7620; J7626

== ENCOUNTER 2018-05-26 08:23 | Inpatient (IN) | payer MEDICAID ==
[~2018-05-26] VITALS: Ht 154.9 cm; Wt 68.0 kg
[~2018-05-26 08:23] MED LIST changes: +SACU1TAB PO; +TRAZ-213 PO
[2018-05-26 09:39] LABS: BASOPHILS % 0.5 % (0.0-2.0); HEMATOCRIT. 36.2 % (36.0-48.0); HEMOGLOBIN. 12.5 g/dL (12.0-16.0); LYMPHOCYTES % 25.5 % (20.0-50.0); MEAN CORPUSCULAR HEMOGLOBIN 32.9 pg (28.0-32.0); MEAN CORPUSCULAR VOLUME 95.5 fL (81.0-99.0); MEAN PLATELET VOLUME 8.2 fl (7.4-10.4); MONOCYTES % 5.3 % (2.0-8.0); NEUTROPHILS % 65.7 % (40.0-76.0); PLATELET 213 x1000/uL (130-400); RED BLOOD CELL COUNT 3.79 mill/uL (4.2-5.4); RED CELL DISTRIBUTION WIDTH 12.4 % (11.6-14.6)
[2018-05-26 09:42] LABS: CHLORIDE 109 mEq/L (98-107)
[2018-05-26] MEDS ORDERED: MORPHINE SULFATE 4 MG/ML CPJ (NOT FOR IM USE) IV ONE (09:45)
[2018-05-26] MEDS ORDERED: BUSP-29 PO (11:04)
[2018-05-26] MEDS ORDERED: [UNRECOGNIZED DRUG - OTHER] (11:04)
[2018-05-26] MEDS ORDERED: IVAB5TAB MT (11:04)
[2018-05-26] MEDS ORDERED: ONDANSETRON HCL 4MG/2ML INJ IV PRN (13:30)
[2018-05-26] MEDS ORDERED: IPRATROPIUM/ALBUTEROL 0.5-3(2.5)MG/3ML NEB HHN PRN (13:30)
[2018-05-26] MEDS ORDERED: DEXTROSE 50% WATER 50ML SYRINGE IV PRN (13:30)
[2018-05-26] MEDS ORDERED: ACETAMINOPHEN 325MG TABLET PO PRN (13:30)
[2018-05-26 14:30] LABS: CLARITY URINE CLEAR (CLEAR); COLOR URINE YELLOW (YELLOW); KETONES URINE NEGATIVE (NEGATIVE); LEUKOCYTE ESTERASE URINE NEGATIVE (NEGATIVE); NITRITE URINE NEGATIVE (NEGATIVE); OCCULT BLOOD URINE NEGATIVE (NEGATIVE); PH URINE 5.5 (4.5-8.0); PROTEIN URINE NEGATIVE (NEGATIVE); SPECIFIC GRAVITY URINE 1.028 (1.005-1.030); UROBILINOGEN URINE 0.2 E.U./dL (0.2-1.0)
[2018-05-26 14:45] VITALS: BP 98/57
[2018-05-26 14:57] LABS: *AMPHETAMINES SCREEN URINE NEGATIVE (NEGATIVE); *BARBITURATES SCREEN URINE NEGATIVE (NEGATIVE); *COCAINE SCREEN URINE NEGATIVE (NEGATIVE); CANNABINOID URINE SCREEN NEGATIVE (NEGATIVE); METHADONE URINE SCREEN NEGATIVE (NEGATIVE); OPIATES URINE SCREEN NEGATIVE (NEGATIVE); PHENCYCLIDINE URINE SCREEN NEGATIVE (NEGATIVE)
[2018-05-26 15:02] LABS: *BENZODIAZEPINES SCREEN URINE PRESUMTIVE POSITIVE (NEGATIVE)
[2018-05-26] MEDS: NITROGLYCERIN OINT 1GM/INCH UDPKT TD SCH ×2 (15:30→21:24)
[2018-05-26] MEDS: MORPHINE SULFATE 4 MG/ML CPJ (NOT FOR IM USE) IV PRN (15:31)
[2018-05-26 16:00] VITALS: BP 90/47
[2018-05-26] MEDS: BUDESONIDE 0.5MG/2ML NEB HHN SCH ×2 (16:54→21:28)
[2018-05-26] MEDS: INSULIN LISPRO 100 UNITS/ML SUBCUT SCH ×2 (17:15→20:34)
[2018-05-26] MEDS: BLOOD SUGAR DIAGNOSTIC STRIP TEST SCH ×2 (17:40→20:34)
[2018-05-26] MEDS ORDERED: TRAZODONE HCL 100MG TABLET PO PRN (18:30)
[2018-05-26] MEDS: LORAZEPAM 2MG/ML CPJ IV PRN (18:52)
[2018-05-26] MEDS: ENOXAPARIN 40MG/0.4ML SYR SUBCUT SCH (19:00)
[2018-05-26 20:00] VITALS: BP 91/48
[2018-05-26] MEDS ORDERED: ASPIRIN 81MG TABLET PO SCH (20:00)
[2018-05-26] MEDS: DOCUSATE SODIUM 100MG CAPSULE PO SCH (20:00)
[2018-05-26] MEDS: FUROSEMIDE 20MG TABLET PO SCH (20:00)
[2018-05-26] MEDS: SPIRONOLACTONE 50MG TABLET PO SCH (20:00)
[2018-05-26] MEDS: TRAZODONE HCL 100MG TABLET PO PRN (20:28)
[2018-05-26] MEDS: ATORVASTATIN CALCIUM 40MG TABLET PO SCH (20:34)
[2018-05-26] MEDS: CARVEDILOL 25MG TABLET PO SCH (20:34)
[2018-05-27] VITALS: BP 97/54
[2018-05-27 06:00] VITALS: BP 102/51
[2018-05-27] MEDS: LEVOTHYROXINE SODIUM 150MCG TABLET PO SCH (06:41)
[2018-05-27] MEDS: LORAZEPAM 2MG/ML CPJ IV PRN ×2 (06:41→18:20)
[2018-05-27] MEDS: NITROGLYCERIN OINT 1GM/INCH UDPKT TD SCH ×3 (06:42→22:00)
[2018-05-27] MEDS: INSULIN LISPRO 100 UNITS/ML SUBCUT SCH ×4 (07:09→21:00)
[2018-05-27] MEDS: BLOOD SUGAR DIAGNOSTIC STRIP TEST SCH ×4 (07:09→21:00)
[2018-05-27 08:00] VITALS: BP 108/65
[2018-05-27] MEDS: FUROSEMIDE 20MG TABLET PO SCH (09:00)
[2018-05-27] MEDS: POTASSIUM CHLORIDE 10MEQ TABLET SR PO SCH (09:00)
[2018-05-27] MEDS: SPIRONOLACTONE 50MG TABLET PO SCH (09:00)
[2018-05-27] MEDS: DOCUSATE SODIUM 100MG CAPSULE PO SCH ×2 (09:07→17:26)
[2018-05-27] MEDS: CARVEDILOL 25MG TABLET PO SCH ×2 (09:08→21:00)
[2018-05-27] MEDS: ASPIRIN 81MG TABLET PO SCH (09:08)
[2018-05-27] MEDS: MORPHINE SULFATE 4 MG/ML CPJ (NOT FOR IM USE) IV PRN ×2 (09:09→17:27)
[2018-05-27 09:37] LABS: BASOPHILS % 0.4 % (0.0-2.0); EOSINOPHILS % 3.1 % (0.0-5.0); HEMATOCRIT. 35.4 % (36.0-48.0); HEMOGLOBIN. 12.2 g/dL (12.0-16.0); LYMPHOCYTES % 23.5 % (20.0-50.0); MEAN CORPUSCULAR HEMOGLOBIN 32.6 pg (28.0-32.0); MEAN CORPUSCULAR VOLUME 94.5 fL (81.0-99.0); MEAN PLATELET VOLUME 8.6 fl (7.4-10.4); MONOCYTES % 6.7 % (2.0-8.0); NEUTROPHILS % 66.3 % (40.0-76.0); PLATELET 200 x1000/uL (130-400); RED BLOOD CELL COUNT 3.75 mill/uL (4.2-5.4); RED CELL DISTRIBUTION WIDTH 12.5 % (11.6-14.6)
[2018-05-27 09:40] LABS: CHLORIDE 111 mEq/L (98-107)
[2018-05-27 12:00] VITALS: BP 81/41
[2018-05-27] MEDS: BUSPIRONE HCL 10MG TABLET PO SCH (12:08)
[2018-05-27 12:22] VITALS: BP 86/50
[2018-05-27] MEDS ORDERED: SODIUM CHLORIDE 0.9% 1,000 ML IV SCH (13:30)
[2018-05-27] MEDS: BUDESONIDE 0.5MG/2ML NEB HHN SCH ×2 (13:49→20:43)
[2018-05-27 16:00] VITALS: BP 108/54
[2018-05-27] MEDS: TRAZODONE HCL 100MG TABLET PO PRN (18:20)
[2018-05-27] MEDS: ENOXAPARIN 40MG/0.4ML SYR SUBCUT SCH (21:00)
[2018-05-27] MEDS: ATORVASTATIN CALCIUM 40MG TABLET PO SCH (21:00)
[2018-05-28] VITALS: BP 93/39
[2018-05-28] MEDS: MORPHINE SULFATE 4 MG/ML CPJ (NOT FOR IM USE) IV PRN (00:42)
[2018-05-28] MEDS: LEVOTHYROXINE SODIUM 150MCG TABLET PO SCH (06:00)
[2018-05-28] MEDS: INSULIN LISPRO 100 UNITS/ML SUBCUT SCH ×2 (06:00→11:50)
[2018-05-28] MEDS: BLOOD SUGAR DIAGNOSTIC STRIP TEST SCH ×2 (06:00→11:50)
[2018-05-28] MEDS: NITROGLYCERIN OINT 1GM/INCH UDPKT TD SCH (06:00)
[2018-05-28 08:00] VITALS: BP 99/58
[2018-05-28 08:52] LABS: BASOPHILS % 0.6 % (0.0-2.0); EOSINOPHILS % 3.2 % (0.0-5.0); HEMATOCRIT. 34.7 % (36.0-48.0); HEMOGLOBIN. 11.8 g/dL (12.0-16.0); LYMPHOCYTES % 24.2 % (20.0-50.0); MEAN CORPUSCULAR HEMOGLOBIN 32.3 pg (28.0-32.0); MEAN CORPUSCULAR VOLUME 94.7 fL (81.0-99.0); MEAN PLATELET VOLUME 8.1 fl (7.4-10.4); MONOCYTES % 6.7 % (2.0-8.0); NEUTROPHILS % 65.3 % (40.0-76.0); PLATELET 189 x1000/uL (130-400); RED BLOOD CELL COUNT 3.66 mill/uL (4.2-5.4); RED CELL DISTRIBUTION WIDTH 12.5 % (11.6-14.6)
[2018-05-28] MEDS: BUDESONIDE 0.5MG/2ML NEB HHN SCH (08:55)
[2018-05-28] MEDS: SPIRONOLACTONE 50MG TABLET PO SCH (09:00)
[2018-05-28] MEDS: CARVEDILOL 25MG TABLET PO SCH (09:00)
[2018-05-28] MEDS: FUROSEMIDE 20MG TABLET PO SCH (09:00)
[2018-05-28] MEDS: POTASSIUM CHLORIDE 10MEQ TABLET SR PO SCH (09:00)
[2018-05-28 09:01] LABS: CHLORIDE 111 mEq/L (98-107)
[2018-05-28] MEDS: LORAZEPAM 2MG/ML CPJ IV PRN (09:41)
[2018-05-28] MEDS: ASPIRIN 81MG TABLET PO SCH (09:57)
[2018-05-28] MEDS: DOCUSATE SODIUM 100MG CAPSULE PO SCH (09:57)
[2018-05-28] MEDS: BUSPIRONE HCL 10MG TABLET PO SCH (09:57)
[2018-05-28 11:58] VITALS: BP 121/66
== END 2018-05-28 14:35 | disposition home or self-care (01) | DRG 203 ==
LOC: ER 11:43 → 5WST 11:45 → ENRESERV 11:59
PROVIDERS: ADMIT Internal Medicine; ATTEND Internal Medicine
DX: M94.0 Chondrocostal junction syndrome [Tietze] (principal); I11.0 Hypertensive heart disease with heart failure; I42.0 Dilated cardiomyopathy; I50.22 Chronic systolic (congestive) heart failure; I95.9 Hypotension, unspecified; E03.9 Hypothyroidism, unspecified; E11.9 Type 2 diabetes mellitus without complications; E78.5 Hyperlipidemia, unspecified; F12.90 Cannabis use, unspecified, uncomplicated; F17.200 Nicotine dependence, unspecified, uncomplicated; F31.9 Bipolar disorder, unspecified; F41.9 Anxiety disorder, unspecified; I49.3 Ventricular premature depolarization; J44.9 Chronic obstructive pulmonary disease, unspecified; Z88.8 Allergy status to other drugs, medicaments and biological substances; Z82.41 Family history of sudden cardiac death; Z82.49 Family history of ischemic heart disease and other diseases of the circulatory system
CPT/HCPCS: 36415; 71045; 80048; 80305; 82962; 83880; 84443; 84484; 93005; 93306; 94640; 96374; 99285; J2060; J2270; J7030; J7620; J7626

== ENCOUNTER 2018-09-21 10:05 | Inpatient (IN) | payer MEDICAID ==
[~2018-09-21] VITALS: Ht 167.6 cm; Wt 69.9 kg
[2018-09-21 09:00] VITALS: BP 122/64
[2018-09-21 10:00] VITALS: BP 120/60
[~2018-09-21 10:05] MED LIST changes: -BACL-141 PO; +BUSP-29 PO; -HYDR-4001 PO; +IVAB5TAB MT; +[UNRECOGNIZED DRUG - OTHER]
[2018-09-21] MEDS ORDERED: ONDANSETRON HCL 4MG/2ML INJ IV STA (10:50)
[2018-09-21] MEDS ORDERED: MORPHINE SULFATE 4 MG/ML CPJ (NOT FOR IM USE) IV STA (10:50)
[2018-09-21 10:59] LABS: BASOPHILS % 0.5 % (0.0-2.0); HEMATOCRIT. 31.9 % (36.0-48.0); HEMOGLOBIN. 11.1 g/dL (12.0-16.0); MEAN CORPUSCULAR HEMOGLOBIN 33.5 pg (28.0-32.0); MEAN CORPUSCULAR VOLUME 96.5 fL (81.0-99.0); MONOCYTES % 6.3 % (2.0-8.0); NEUTROPHILS % 66.2 % (40.0-76.0); PLATELET 175 x1000/uL (130-400); RED CELL DISTRIBUTION WIDTH 12.7 % (11.6-14.6)
[2018-09-21 11:04] LABS: CHLORIDE 112 mEq/L (98-107)
[2018-09-21 11:05] LABS: PROTHROMBIN TIME 10.5 sec (9.1-11.1)
[2018-09-21 11:08] LABS: ETHANOL BLOOD < 10 mg/dL
[2018-09-21] MEDS: BUDESONIDE 0.5MG/2ML NEB HHN SCH (12:00)
[2018-09-21] MEDS ORDERED: IPRATROPIUM/ALBUTEROL 0.5-3(2.5)MG/3ML NEB HHN PRN (14:15)
[2018-09-21] MEDS ORDERED: ONDANSETRON HCL 4MG/2ML INJ IV PRN (14:15)
[2018-09-21] MEDS ORDERED: ACETAMINOPHEN 325MG TABLET PO PRN (14:15)
[2018-09-21] MEDS ORDERED: CLONIDINE 0.1MG TABLET PO PRN (14:15)
[2018-09-21] MEDS: MORPHINE SULFATE 4 MG/ML CPJ (NOT FOR IM USE) IV PRN (15:00)
[2018-09-21 15:11] LABS: *AMPHETAMINES SCREEN URINE NEGATIVE (NEGATIVE); *BARBITURATES SCREEN URINE NEGATIVE (NEGATIVE); *COCAINE SCREEN URINE NEGATIVE (NEGATIVE)
[2018-09-21 15:12] LABS: CANNABINOID URINE SCREEN NEGATIVE (NEGATIVE); METHADONE URINE SCREEN NEGATIVE (NEGATIVE); PHENCYCLIDINE URINE SCREEN NEGATIVE (NEGATIVE)
[2018-09-21 15:15] LABS: *BENZODIAZEPINES SCREEN URINE PRESUMTIVE POSITIVE (NEGATIVE); OPIATES URINE SCREEN PRESUMTIVE POSITIVE (NEGATIVE)
[2018-09-21] MEDS ORDERED: AMLODIPINE 5MG TABLET PO ONE (15:45)
[2018-09-21 17:43] VITALS: BP 135/73
[2018-09-21] MEDS: HYDROCODONE/ACETAMINOPHEN 5/325MG TABLET PO PRN ×2 (17:53→22:40)
[2018-09-21 18:00] VITALS: BP 135/76
[2018-09-21] MEDS: DIAZEPAM 5 MG TABLET PO PRN (18:06)
[2018-09-21 20:42] VITALS: BP 135/75
[2018-09-21] MEDS ORDERED: VANCOMYCIN 1500MG in DEXTROSE 5% WATER 250ML IV NR (21:00)
[2018-09-21] MEDS: CARVEDILOL 25MG TABLET PO SCH (22:32)
[2018-09-21] MEDS: ATORVASTATIN CALCIUM 40MG TABLET PO SCH (22:32)
[2018-09-21] MEDS: TRAZODONE HCL 100MG TABLET PO SCH (22:39)
[2018-09-22] MEDS: DIAZEPAM 5 MG TABLET PO PRN ×3 (00:31→18:45)
[2018-09-22 04:00] VITALS: BP 100/59
[2018-09-22 07:01] LABS: BASOPHILS % 0.4 % (0.0-2.0); EOSINOPHILS % 2.6 % (0.0-5.0); HEMATOCRIT. 28.8 % (36.0-48.0); LYMPHOCYTES % 28.3 % (20.0-50.0); MEAN CORPUSCULAR HEMOGLOBIN 33.7 pg (28.0-32.0); MEAN CORPUSCULAR VOLUME 97.3 fL (81.0-99.0); MEAN PLATELET VOLUME 7.6 fl (7.4-10.4); MONOCYTES % 8.3 % (2.0-8.0); NEUTROPHILS % 60.4 % (40.0-76.0); PLATELET 155 x1000/uL (130-400); RED BLOOD CELL COUNT 2.96 mill/uL (4.2-5.4); RED CELL DISTRIBUTION WIDTH 12.3 % (11.6-14.6)
[2018-09-22 07:38] LABS: CHLORIDE 110 mEq/L (98-107)
[2018-09-22 08:00] VITALS: BP 110/61
[2018-09-22] MEDS ORDERED: IBUPROFEN 800 MG PO PRN (08:00)
[2018-09-22] MEDS ORDERED: DIAZEPAM 5 MG PO PRN (08:00)
[2018-09-22] MEDS: LEVOTHYROXINE SODIUM 150MCG TABLET PO SCH (08:49)
[2018-09-22] MEDS: CARVEDILOL 25MG TABLET PO SCH ×2 (08:50→20:54)
[2018-09-22] MEDS: AMLODIPINE 5MG TABLET PO SCH (08:51)
[2018-09-22] MEDS: METFORMIN HCL 500MG TABLET PO SCH ×2 (08:56→17:50)
[2018-09-22] MEDS: VANCOMYCIN 1250MG in DEXTROSE 5% WATER 250ML IV SCH ×2 (08:56→20:53)
[2018-09-22] MEDS ORDERED: POTASSIUM CHLORIDE 8 MEQ PO SCH (09:00)
[2018-09-22] MEDS ORDERED: MEDICATION NOT ON FORMULARY EA (Furosemide 20 MG) PO SCH (09:00)
[2018-09-22] MEDS ORDERED: MEDICATION NOT ON FORMULARY EA (Buspirone Hcl 15 MG) PO SCH (09:00)
[2018-09-22] MEDS: FUROSEMIDE 20MG TABLET PO SCH (09:00)
[2018-09-22] MEDS ORDERED: MEDICATION NOT ON FORMULARY EA (Docusate Sodium (Colace) 100 MG) PO SCH (09:00)
[2018-09-22] MEDS ORDERED: CARVEDILOL 25MG TABLET PO SCH (09:00)
[2018-09-22] MEDS: DOCUSATE SODIUM 100MG CAPSULE PO SCH ×2 (09:00→17:00)
[2018-09-22] MEDS ORDERED: MEDICATION NOT ON FORMULARY EA (Sacubitril/Valsartan (Entresto 24 mg-26 mg Tablet) 1 EAC PO SCH (09:00)
[2018-09-22] MEDS: SPIRONOLACTONE 50MG TABLET PO SCH (09:15)
[2018-09-22] MEDS: POTASSIUM CHLORIDE 8 MEQ TABLET.SA PO SCH (09:15)
[2018-09-22] MEDS: PAROXETINE HCL 10MG TABLET PO SCH (09:15)
[2018-09-22] MEDS: ASPIRIN 81MG TABLET PO SCH (09:15)
[2018-09-22] MEDS: BUSPIRONE HCL 10MG TABLET PO SCH (09:15)
[2018-09-22] MEDS: CALCIUM CARBONATE 1250MG TABLET (500MG ELEMENTAL CALCIUM) PO SCH (09:20)
[2018-09-22] MEDS ORDERED: IBUPROFEN 800MG TABLET PO PRN (10:00)
[2018-09-22] MEDS: HYDROCODONE/ACETAMINOPHEN 5/325MG TABLET PO PRN (10:55)
[2018-09-22 12:00] VITALS: BP 119/80
[2018-09-22] MEDS: SACUBITRIL/VALSARTAN 24/26 TAB PO SCH ×2 (12:46→18:51)
[2018-09-22] MEDS ORDERED: SUMATRIPTAN SUCCINATE 6MG/0.5ML VIAL SUBCUT NR (14:00)
[2018-09-22 15:57] LABS: HCG SCREEN NEGATIVE
[2018-09-22] MEDS: MORPHINE SULFATE 4 MG/ML CPJ (NOT FOR IM USE) IV PRN ×2 (16:05→23:07)
[2018-09-22 20:00] VITALS: BP 126/81
[2018-09-22] MEDS: ATORVASTATIN CALCIUM 40MG TABLET PO SCH (20:54)
[2018-09-22] MEDS: QUETIAPINE FUMARATE 25MG TABLET PO SCH (20:54)
[2018-09-22] MEDS: TRAZODONE HCL 100MG TABLET PO SCH (20:54)
[2018-09-22] MEDS ORDERED: MEDICATION NOT ON FORMULARY EA (Trazodone Hcl 200 MG) PO SCH (21:00)
[2018-09-22] MEDS ORDERED: ATORVASTATIN CALCIUM 40MG TABLET PO SCH (21:00)
[2018-09-22] MEDS ORDERED: TRAZODONE HCL 100MG TABLET PO SCH (21:00)
[2018-09-23] MEDS: LEVOTHYROXINE SODIUM 150MCG TABLET PO SCH (06:55)
[2018-09-23] MEDS: GLIPIZIDE 10MG TABLET PO SCH (06:55)
[2018-09-23] MEDS: METFORMIN HCL 500MG TABLET PO SCH ×2 (07:50→17:50)
[2018-09-23 08:00] VITALS: BP 107/59
[2018-09-23] MEDS ORDERED: SUMATRIPTAN SUCCINATE 6MG/0.5ML VIAL SUBCUT NR (08:30)
[2018-09-23] MEDS: SPIRONOLACTONE 50MG TABLET PO SCH (09:00)
[2018-09-23] MEDS: POTASSIUM CHLORIDE 8 MEQ TABLET.SA PO SCH (09:00)
[2018-09-23] MEDS: FUROSEMIDE 20MG TABLET PO SCH (09:00)
[2018-09-23] MEDS: AMLODIPINE 5MG TABLET PO SCH (09:00)
[2018-09-23] MEDS: CARVEDILOL 25MG TABLET PO SCH ×2 (09:00→20:13)
[2018-09-23 09:36] LABS: BASOPHILS % 0.4 % (0.0-2.0); EOSINOPHILS % 2.7 % (0.0-5.0); HEMATOCRIT. 30.9 % (36.0-48.0); HEMOGLOBIN. 10.4 g/dL (12.0-16.0); LYMPHOCYTES % 29.7 % (20.0-50.0); MEAN CORPUSCULAR HEMOGLOBIN 33.1 pg (28.0-32.0); MEAN CORPUSCULAR VOLUME 98.1 fL (81.0-99.0); MEAN PLATELET VOLUME 7.7 fl (7.4-10.4); NEUTROPHILS % 59.2 % (40.0-76.0); PLATELET 173 x1000/uL (130-400); RED BLOOD CELL COUNT 3.15 mill/uL (4.2-5.4); RED CELL DISTRIBUTION WIDTH 12.7 % (11.6-14.6)
[2018-09-23] MEDS: CALCIUM CARBONATE 1250MG TABLET (500MG ELEMENTAL CALCIUM) PO SCH (09:42)
[2018-09-23] MEDS: BUSPIRONE HCL 10MG TABLET PO SCH (09:42)
[2018-09-23] MEDS: PAROXETINE HCL 10MG TABLET PO SCH (09:42)
[2018-09-23] MEDS: DIAZEPAM 5 MG TABLET PO PRN (09:42)
[2018-09-23] MEDS: ASPIRIN 81MG TABLET PO SCH (09:43)
[2018-09-23] MEDS: DOCUSATE SODIUM 100MG CAPSULE PO SCH ×2 (09:48→18:12)
[2018-09-23 10:47] LABS: CHLORIDE 111 mEq/L (98-107)
[2018-09-23] MEDS: SACUBITRIL/VALSARTAN 24/26 TAB PO SCH ×2 (11:13→18:12)
[2018-09-23 12:00] VITALS: BP 109/69
[2018-09-23 16:00] VITALS: BP 110/64
[2018-09-23] MEDS: MORPHINE SULFATE 4 MG/ML CPJ (NOT FOR IM USE) IV PRN (18:13)
[2018-09-23 20:00] VITALS: BP 101/57
[2018-09-23] MEDS: TRAZODONE HCL 100MG TABLET PO SCH (20:49)
[2018-09-23] MEDS: QUETIAPINE FUMARATE 25MG TABLET PO SCH (20:49)
[2018-09-23] MEDS: ATORVASTATIN CALCIUM 40MG TABLET PO SCH (20:49)
[2018-09-24] MEDS: BUDESONIDE 0.5MG/2ML NEB HHN SCH ×2 (02:15→09:20)
[2018-09-24 04:00] VITALS: BP 122/63
[2018-09-24] MEDS: GLIPIZIDE 10MG TABLET PO SCH (06:34)
[2018-09-24] MEDS: LEVOTHYROXINE SODIUM 150MCG TABLET PO SCH (06:34)
[2018-09-24] MEDS: METFORMIN HCL 500MG TABLET PO SCH (07:50)
[2018-09-24] MEDS: SPIRONOLACTONE 50MG TABLET PO SCH (09:00)
[2018-09-24] MEDS: FUROSEMIDE 20MG TABLET PO SCH (09:00)
[2018-09-24] MEDS: AMLODIPINE 5MG TABLET PO SCH (09:00)
[2018-09-24] MEDS: CARVEDILOL 25MG TABLET PO SCH (09:00)
[2018-09-24] MEDS: POTASSIUM CHLORIDE 8 MEQ TABLET.SA PO SCH (09:00)
[2018-09-24] MEDS: MORPHINE SULFATE 4 MG/ML CPJ (NOT FOR IM USE) IV PRN (09:59)
[2018-09-24] MEDS: DIAZEPAM 5 MG TABLET PO PRN (10:07)
[2018-09-24] MEDS: ASPIRIN 81MG TABLET PO SCH (10:07)
[2018-09-24] MEDS: PAROXETINE HCL 10MG TABLET PO SCH (10:07)
[2018-09-24] MEDS: SACUBITRIL/VALSARTAN 24/26 TAB PO SCH (10:07)
[2018-09-24] MEDS: DOCUSATE SODIUM 100MG CAPSULE PO SCH (10:07)
[2018-09-24] MEDS: CALCIUM CARBONATE 1250MG TABLET (500MG ELEMENTAL CALCIUM) PO SCH (10:08)
[2018-09-24] MEDS: BUSPIRONE HCL 10MG TABLET PO SCH (10:08)
[2018-09-24 15:24] VITALS: BP 122/55
== END 2018-09-24 16:09 | disposition home or self-care (01) | DRG 206 ==
LOC: ER 10:05 → 6WST 11:15 → EDBEDREQ 11:58 → ENRESERV 14:36
PROVIDERS: ADMIT Internal Medicine; ATTEND Internal Medicine
DX: T82.847A Pain due to cardiac prosthetic devices, implants and grafts, initial encounter (principal); I50.23 Acute on chronic systolic (congestive) heart failure; J18.9 Pneumonia, unspecified organism; E87.8 Other disorders of electrolyte and fluid balance, not elsewhere classified; I42.0 Dilated cardiomyopathy; I11.0 Hypertensive heart disease with heart failure; E11.9 Type 2 diabetes mellitus without complications; D64.9 Anemia, unspecified; J44.0 Chronic obstructive pulmonary disease with (acute) lower respiratory infection; E03.9 Hypothyroidism, unspecified; F99 Mental disorder, not otherwise specified; E78.5 Hyperlipidemia, unspecified; F17.210 Nicotine dependence, cigarettes, uncomplicated; F31.9 Bipolar disorder, unspecified; F41.9 Anxiety disorder, unspecified; Z90.721 Acquired absence of ovaries, unilateral; Z95.810 Presence of automatic (implantable) cardiac defibrillator; Z88.8 Allergy status to other drugs, medicaments and biological substances; Z79.51 Long term (current) use of inhaled steroids; Z79.899 Other long term (current) drug therapy
CPT/HCPCS: 36415; 71045; 71250; 72131; 76604; 80048; 80202; 80305; 80320; 82962; 83605; 83880; 84145; 84443; 84484; 84703; 93005; 93306; 93970; 96374; 96375; 97162; 99285; J2270; J2405; J3030; J3370; J7040; J7050; J7060; J7620; J7626; G0480

== ENCOUNTER 2018-11-29 16:24 | Inpatient (IN) | payer MEDICAID ==
[~2018-11-29] VITALS: Ht 167.6 cm; Wt 80.7 kg
[~2018-11-29 16:24] MED LIST changes: -IVAB5TAB MT; +IVAB5TAB PO
[2018-11-29] MEDS ORDERED: ASPIRIN 325MG TABLET PO ONE (18:30)
[2018-11-29 18:43] LABS: CHLORIDE 109 mEq/L (98-107)
[2018-11-29 18:44] LABS: EOSINOPHILS % 3.6 % (0.0-5.0); HEMATOCRIT. 38.1 % (36.0-48.0); LYMPHOCYTES % 37.6 % (20.0-50.0); MEAN CORPUSCULAR HEMOGLOBIN 33.6 pg (28.0-32.0); MEAN CORPUSCULAR VOLUME 98.6 fL (81.0-99.0); MEAN PLATELET VOLUME 8.1 fl (7.4-10.4); MONOCYTES % 5.6 % (2.0-8.0); NEUTROPHILS % 52.2 % (40.0-76.0); PLATELET 212 x1000/uL (130-400); RED BLOOD CELL COUNT 3.86 mill/uL (4.2-5.4); RED CELL DISTRIBUTION WIDTH 13.5 % (11.6-14.6)
[2018-11-29] MEDS ORDERED: DIPHENHYDRAMINE 50MG/ML VIAL IV NR (19:00)
[2018-11-29] MEDS ORDERED: METOCLOPRAMIDE HCL 10MG/2ML VIAL IV NR (19:00)
[2018-11-29 19:29] LABS: CLARITY URINE CLOUDY (CLEAR); COLOR URINE YELLOW (YELLOW); KETONES URINE NEGATIVE (NEGATIVE); LEUKOCYTE ESTERASE URINE TRACE (NEGATIVE); NITRITE URINE NEGATIVE (NEGATIVE); OCCULT BLOOD URINE NEGATIVE (NEGATIVE); PH URINE 5.5 (4.5-8.0); PROTEIN URINE 1+ (NEGATIVE); SPECIFIC GRAVITY URINE 1.033 (1.005-1.030); UROBILINOGEN URINE 0.2 E.U./dL (0.2-1.0)
[2018-11-29] MEDS ORDERED: DIPHENHYDRAMINE 50MG/ML VIAL ONE (20:08)
[2018-11-29] MEDS ORDERED: LEVOTHYROXINE SODIUM 150MCG TABLET PO NR (22:45)
[2018-11-30] VITALS (7 sets, daily range): BP systolic 118–145; BP diastolic 67–87
[2018-11-30] MEDS ORDERED: VENL75TA86 PO (02:27)
[2018-11-30] MEDS ORDERED: HYDR50SY PO (02:27)
[2018-11-30] MEDS ORDERED: BACL-141 PO (02:27)
[2018-11-30] MEDS ORDERED: QUET25TA PO (02:27)
[2018-11-30] MEDS ORDERED: LEVO750T46 PO (02:27)
[2018-11-30] MEDS ORDERED: PARO30TA76 PO (02:27)
[2018-11-30] MEDS ORDERED: LIP40 PO (02:27)
[2018-11-30] MEDS ORDERED: DEXTROSE 50% WATER 50ML SYRINGE IV PRN (03:45)
[2018-11-30] MEDS: BLOOD SUGAR DIAGNOSTIC STRIP TEST SCH ×4 (06:08→21:00)
[2018-11-30 06:16] LABS: BASOPHILS % 0.5 % (0.0-2.0); EOSINOPHILS % 4.8 % (0.0-5.0); HEMATOCRIT. 35.5 % (36.0-48.0); HEMOGLOBIN. 12.3 g/dL (12.0-16.0); LYMPHOCYTES % 36.6 % (20.0-50.0); MEAN CORPUSCULAR HEMOGLOBIN 34.1 pg (28.0-32.0); MEAN CORPUSCULAR VOLUME 98.6 fL (81.0-99.0); MEAN PLATELET VOLUME 7.8 fl (7.4-10.4); MONOCYTES % 8.2 % (2.0-8.0); NEUTROPHILS % 49.9 % (40.0-76.0); PLATELET 201 x1000/uL (130-400); RED CELL DISTRIBUTION WIDTH 13.5 % (11.6-14.6)
[2018-11-30 06:21] LABS: CHLORIDE 109 mEq/L (98-107)
[2018-11-30] MEDS ORDERED: POTASSIUM CHLORIDE 20MEQ TABLET SR PO NR ×2 (06:30→11:00)
[2018-11-30] MEDS: INSULIN LISPRO 100 UNITS/ML SUBCUT SCH ×4 (06:40→21:00)
[2018-11-30] MEDS: ENOXAPARIN 40MG/0.4ML SYR SUBCUT SCH (09:00)
[2018-11-30] MEDS: HYDROCODONE/ACETAMINOPHEN 5/325MG TABLET PO PRN (09:34)
[2018-11-30] MEDS: SPIRONOLACTONE 50MG TABLET PO SCH (13:45)
[2018-11-30] MEDS ORDERED: QUETIAPINE FUMARATE 25MG TABLET PO SCH (13:45)
[2018-11-30] MEDS: BACLOFEN 10MG TABLET PO SCH ×2 (15:00→20:31)
[2018-11-30] MEDS: POTASSIUM CHLORIDE 8 MEQ TABLET.SA PO SCH ×2 (15:00→15:54)
[2018-11-30] MEDS: ASPIRIN 81MG TABLET PO SCH (15:52)
[2018-11-30] MEDS: CARVEDILOL 12.5MG TABLET PO SCH ×2 (15:54→21:00)
[2018-11-30] MEDS: FUROSEMIDE 20MG TABLET PO SCH (15:54)
[2018-11-30] MEDS: BUSPIRONE HCL 10MG TABLET PO SCH (15:55)
[2018-11-30] MEDS: VENLAFAXINE HCL 75MG TABLET PO SCH ×2 (15:56→17:00)
[2018-11-30] MEDS: PAROXETINE HCL 10MG TABLET PO SCH (15:56)
[2018-11-30] MEDS: ONDANSETRON HCL 4MG/2ML INJ IV PRN (18:54)
[2018-11-30] MEDS: DIAZEPAM 5 MG TABLET PO SCH (20:30)
[2018-11-30] MEDS: QUETIAPINE FUMARATE 25MG TABLET PO SCH (20:30)
[2018-11-30] MEDS: TRAZODONE HCL 100MG TABLET PO SCH (20:30)
[2018-11-30] MEDS: ATORVASTATIN CALCIUM 40MG TABLET PO SCH (20:31)
[2018-11-30] MEDS ORDERED: HYDROXYZINE 25MG TABLET PO PRN (21:00)
[2018-12-01 04:00] VITALS: BP 124/73
[2018-12-01] MEDS: BACLOFEN 10MG TABLET PO SCH ×3 (05:44→21:03)
[2018-12-01] MEDS: LEVOTHYROXINE SODIUM 175MCG TABLET PO SCH (05:45)
[2018-12-01] MEDS: BLOOD SUGAR DIAGNOSTIC STRIP TEST SCH ×4 (05:52→21:03)
[2018-12-01] MEDS: INSULIN LISPRO 100 UNITS/ML SUBCUT SCH ×4 (05:52→21:00)
[2018-12-01] MEDS ORDERED: LEVOTHYROXINE SODIUM 150MCG TABLET PO SCH (06:45)
[2018-12-01 08:00] VITALS: BP 127/73
[2018-12-01] MEDS: ONDANSETRON HCL 4MG/2ML INJ IV PRN ×3 (08:26→21:46)
[2018-12-01] MEDS: HYDROCODONE/ACETAMINOPHEN 5/325MG TABLET PO PRN ×2 (08:27→20:15)
[2018-12-01] MEDS: DIAZEPAM 5 MG TABLET PO SCH ×2 (08:27→21:03)
[2018-12-01] MEDS: PAROXETINE HCL 10MG TABLET PO SCH (08:27)
[2018-12-01] MEDS: ASPIRIN 81MG TABLET PO SCH (08:27)
[2018-12-01] MEDS: BUSPIRONE HCL 10MG TABLET PO SCH (08:28)
[2018-12-01] MEDS: POTASSIUM CHLORIDE 8 MEQ TABLET.SA PO SCH (08:28)
[2018-12-01] MEDS: SPIRONOLACTONE 50MG TABLET PO SCH (08:32)
[2018-12-01] MEDS: FUROSEMIDE 20MG TABLET PO SCH (08:32)
[2018-12-01] MEDS: CARVEDILOL 12.5MG TABLET PO SCH ×2 (08:32→20:40)
[2018-12-01] MEDS: ENOXAPARIN 40MG/0.4ML SYR SUBCUT SCH (08:32)
[2018-12-01] MEDS: VENLAFAXINE HCL 75MG TABLET PO SCH ×3 (09:00→17:00)
[2018-12-01] MEDS ORDERED: LEVOFLOXACIN 250MG TABLET PO SCH (11:00)
[2018-12-01 12:00] VITALS: BP 130/74
[2018-12-01 16:00] VITALS: BP_SYST 130; BP_SYST 144; BP_DIAS 64; BP_DIAS 91
[2018-12-01 20:00] VITALS: BP 122/79
[2018-12-01] MEDS: METOCLOPRAMIDE HCL 10MG/2ML VIAL IV SCH (20:12)
[2018-12-01] MEDS: TRAZODONE HCL 100MG TABLET PO SCH (21:03)
[2018-12-01] MEDS: ATORVASTATIN CALCIUM 40MG TABLET PO SCH (21:03)
[2018-12-01] MEDS: QUETIAPINE FUMARATE 25MG TABLET PO SCH (21:03)
[2018-12-02] VITALS: BP 118/63
[2018-12-02] MEDS: METOCLOPRAMIDE HCL 10MG/2ML VIAL IV SCH ×4 (00:33→17:30)
[2018-12-02 04:00] VITALS: BP 126/71
[2018-12-02] MEDS: HYDROCODONE/ACETAMINOPHEN 5/325MG TABLET PO PRN (04:14)
[2018-12-02] MEDS: BLOOD SUGAR DIAGNOSTIC STRIP TEST SCH ×4 (05:18→21:49)
[2018-12-02] MEDS: BACLOFEN 10MG TABLET PO SCH ×3 (05:18→22:00)
[2018-12-02] MEDS: LEVOTHYROXINE SODIUM 175MCG TABLET PO SCH (05:20)
[2018-12-02] MEDS: INSULIN LISPRO 100 UNITS/ML SUBCUT SCH ×4 (05:58→21:00)
[2018-12-02 07:31] LABS: BASOPHILS % 0.8 % (0.0-2.0); EOSINOPHILS % 2.7 % (0.0-5.0); HEMATOCRIT. 33.7 % (36.0-48.0); HEMOGLOBIN. 11.4 g/dL (12.0-16.0); MEAN CORPUSCULAR HEMOGLOBIN 33.8 pg (28.0-32.0); MEAN CORPUSCULAR VOLUME 99.8 fL (81.0-99.0); MEAN PLATELET VOLUME 8.2 fl (7.4-10.4); MONOCYTES % 8.2 % (2.0-8.0); NEUTROPHILS % 47.3 % (40.0-76.0); PLATELET 175 x1000/uL (130-400); RED BLOOD CELL COUNT 3.37 mill/uL (4.2-5.4); RED CELL DISTRIBUTION WIDTH 13.1 % (11.6-14.6)
[2018-12-02 07:45] LABS: CHLORIDE 110 mEq/L (98-107)
[2018-12-02 08:00] VITALS: BP 120/66
[2018-12-02] MEDS: CARVEDILOL 12.5MG TABLET PO SCH ×2 (09:00→21:47)
[2018-12-02] MEDS: DIAZEPAM 5 MG TABLET PO SCH ×2 (09:00→21:48)
[2018-12-02] MEDS: BUSPIRONE HCL 10MG TABLET PO SCH (09:00)
[2018-12-02] MEDS: ASPIRIN 81MG TABLET PO SCH (09:00)
[2018-12-02] MEDS: FUROSEMIDE 20MG TABLET PO SCH (09:00)
[2018-12-02] MEDS: SPIRONOLACTONE 50MG TABLET PO SCH (09:00)
[2018-12-02] MEDS: ENOXAPARIN 40MG/0.4ML SYR SUBCUT SCH (09:00)
[2018-12-02] MEDS: POTASSIUM CHLORIDE 8 MEQ TABLET.SA PO SCH (09:00)
[2018-12-02] MEDS: VENLAFAXINE HCL 75MG TABLET PO SCH ×3 (09:00→17:00)
[2018-12-02] MEDS: PAROXETINE HCL 10MG TABLET PO SCH (09:00)
[2018-12-02] MEDS: ONDANSETRON HCL 4MG/2ML INJ IV PRN (09:39)
[2018-12-02 12:00] VITALS: BP 133/71
[2018-12-02] MEDS: LIOTHYRONINE SODIUM 5MCG TABLET PO SCH (18:11)
[2018-12-02 20:00] VITALS: BP 139/69
[2018-12-02] MEDS: TRAZODONE HCL 100MG TABLET PO SCH (21:46)
[2018-12-02] MEDS: QUETIAPINE FUMARATE 25MG TABLET PO SCH (21:47)
[2018-12-02] MEDS: ATORVASTATIN CALCIUM 40MG TABLET PO SCH (21:47)
[2018-12-03] MEDS: METOCLOPRAMIDE HCL 10MG/2ML VIAL IV SCH ×5 (06:12→23:31)
[2018-12-03] MEDS: BACLOFEN 10MG TABLET PO SCH ×3 (06:12→20:52)
[2018-12-03] MEDS: BLOOD SUGAR DIAGNOSTIC STRIP TEST SCH ×4 (06:15→20:53)
[2018-12-03] MEDS ORDERED: LEVOTHYROXINE SODIUM 100 MCG/ VIAL IV SCH (07:10)
[2018-12-03] MEDS: INSULIN LISPRO 100 UNITS/ML SUBCUT SCH ×4 (07:40→20:53)
[2018-12-03] MEDS: SPIRONOLACTONE 50MG TABLET PO SCH (08:50)
[2018-12-03] MEDS: CARVEDILOL 12.5MG TABLET PO SCH (08:51)
[2018-12-03] MEDS: BUSPIRONE HCL 10MG TABLET PO SCH (08:51)
[2018-12-03] MEDS: ASPIRIN 81MG TABLET PO SCH (08:51)
[2018-12-03] MEDS: POTASSIUM CHLORIDE 8 MEQ TABLET.SA PO SCH (08:52)
[2018-12-03] MEDS: VENLAFAXINE HCL 75MG TABLET PO SCH ×3 (08:52→17:00)
[2018-12-03] MEDS: PAROXETINE HCL 10MG TABLET PO SCH (08:52)
[2018-12-03] MEDS: FUROSEMIDE 20MG TABLET PO SCH (08:52)
[2018-12-03] MEDS: DIAZEPAM 5 MG TABLET PO SCH ×2 (08:53→20:46)
[2018-12-03] MEDS: LIOTHYRONINE SODIUM 5MCG TABLET PO SCH ×2 (08:53→18:32)
[2018-12-03] MEDS: ENOXAPARIN 40MG/0.4ML SYR SUBCUT SCH (08:54)
[2018-12-03 12:00] VITALS: BP 124/72
[2018-12-03 16:00] VITALS: BP 126/70
[2018-12-03 20:00] VITALS: BP 119/63
[2018-12-03] MEDS: QUETIAPINE FUMARATE 25MG TABLET PO SCH (20:46)
[2018-12-03] MEDS: TRAZODONE HCL 100MG TABLET PO SCH (20:46)
[2018-12-03] MEDS: CARVEDILOL 25MG TABLET PO SCH (20:47)
[2018-12-03] MEDS: ATORVASTATIN CALCIUM 40MG TABLET PO SCH (20:47)
[2018-12-04] VITALS: BP 109/63
[2018-12-04 04:00] VITALS: BP 117/68
[2018-12-04] MEDS: BACLOFEN 10MG TABLET PO SCH ×3 (05:41→20:45)
[2018-12-04] MEDS: METOCLOPRAMIDE HCL 10MG/2ML VIAL IV SCH ×3 (05:41→16:54)
[2018-12-04 06:27] LABS: BASOPHILS % 0.7 % (0.0-2.0); EOSINOPHILS % 3.8 % (0.0-5.0); HEMATOCRIT. 34.1 % (36.0-48.0); HEMOGLOBIN. 11.9 g/dL (12.0-16.0); LYMPHOCYTES % 39.5 % (20.0-50.0); MEAN CORPUSCULAR HEMOGLOBIN 34.3 pg (28.0-32.0); MEAN CORPUSCULAR VOLUME 98.4 fL (81.0-99.0); MEAN PLATELET VOLUME 8.4 fl (7.4-10.4); MONOCYTES % 10.1 % (2.0-8.0); NEUTROPHILS % 45.9 % (40.0-76.0); PLATELET 166 x1000/uL (130-400); RED BLOOD CELL COUNT 3.47 mill/uL (4.2-5.4); RED CELL DISTRIBUTION WIDTH 13.4 % (11.6-14.6)
[2018-12-04] MEDS: BLOOD SUGAR DIAGNOSTIC STRIP TEST SCH ×4 (07:01→20:46)
[2018-12-04] MEDS: INSULIN LISPRO 100 UNITS/ML SUBCUT SCH ×4 (07:02→20:46)
[2018-12-04 07:24] LABS: CHLORIDE 109 mEq/L (98-107)
[2018-12-04 08:00] VITALS: BP 106/63
[2018-12-04] MEDS: ENOXAPARIN 40MG/0.4ML SYR SUBCUT SCH (09:00)
[2018-12-04] MEDS: VENLAFAXINE HCL 75MG TABLET PO SCH ×3 (09:00→16:29)
[2018-12-04] MEDS: POTASSIUM CHLORIDE 8 MEQ TABLET.SA PO SCH (09:00)
[2018-12-04] MEDS: PAROXETINE HCL 10MG TABLET PO SCH (09:00)
[2018-12-04] MEDS: CARVEDILOL 25MG TABLET PO SCH ×2 (09:00→20:45)
[2018-12-04] MEDS: ASPIRIN 81MG TABLET PO SCH (09:00)
[2018-12-04] MEDS: FUROSEMIDE 20MG TABLET PO SCH (09:00)
[2018-12-04] MEDS: SPIRONOLACTONE 50MG TABLET PO SCH (09:00)
[2018-12-04] MEDS: BUSPIRONE HCL 10MG TABLET PO SCH (09:00)
[2018-12-04] MEDS: LEVOTHYROXINE SODIUM 100 MCG/ VIAL IV SCH (09:22)
[2018-12-04] MEDS: DIAZEPAM 5 MG TABLET PO SCH ×2 (09:22→20:45)
[2018-12-04] MEDS: LIOTHYRONINE SODIUM 5MCG TABLET PO SCH ×2 (09:23→16:54)
[2018-12-04 16:00] VITALS: BP 109/66
[2018-12-04 20:00] VITALS: BP 119/68
[2018-12-04] MEDS: ATORVASTATIN CALCIUM 40MG TABLET PO SCH (20:45)
[2018-12-04] MEDS: QUETIAPINE FUMARATE 25MG TABLET PO SCH (20:45)
[2018-12-04] MEDS: TRAZODONE HCL 100MG TABLET PO SCH (20:45)
[2018-12-05] VITALS: BP 115/71
[2018-12-05 04:00] VITALS: BP 115/75
[2018-12-05] MEDS: METOCLOPRAMIDE HCL 10MG/2ML VIAL IV SCH ×3 (06:00→14:26)
[2018-12-05 06:20] LABS: BASOPHILS % 0.5 % (0.0-2.0); EOSINOPHILS % 3.4 % (0.0-5.0); HEMATOCRIT. 33.6 % (36.0-48.0); HEMOGLOBIN. 11.6 g/dL (12.0-16.0); LYMPHOCYTES % 32.6 % (20.0-50.0); MEAN CORPUSCULAR HEMOGLOBIN 34.3 pg (28.0-32.0); MEAN CORPUSCULAR VOLUME 99.4 fL (81.0-99.0); MEAN PLATELET VOLUME 8.5 fl (7.4-10.4); MONOCYTES % 10.9 % (2.0-8.0); NEUTROPHILS % 52.6 % (40.0-76.0); PLATELET 163 x1000/uL (130-400); RED BLOOD CELL COUNT 3.38 mill/uL (4.2-5.4)
[2018-12-05] MEDS: BACLOFEN 10MG TABLET PO SCH ×2 (06:23→14:00)
[2018-12-05] MEDS: LEVOTHYROXINE SODIUM 100 MCG/ VIAL IV SCH (06:23)
[2018-12-05] MEDS: BLOOD SUGAR DIAGNOSTIC STRIP TEST SCH ×2 (06:27→12:10)
[2018-12-05] MEDS: INSULIN LISPRO 100 UNITS/ML SUBCUT SCH ×2 (06:27→12:40)
[2018-12-05 06:35] LABS: CHLORIDE 113 mEq/L (98-107)
[2018-12-05] MEDS: CARVEDILOL 25MG TABLET PO SCH (09:00)
[2018-12-05] MEDS: VENLAFAXINE HCL 75MG TABLET PO SCH ×2 (09:00→13:00)
[2018-12-05] MEDS: FUROSEMIDE 20MG TABLET PO SCH (09:00)
[2018-12-05] MEDS: PAROXETINE HCL 10MG TABLET PO SCH (09:00)
[2018-12-05] MEDS: ENOXAPARIN 40MG/0.4ML SYR SUBCUT SCH (09:00)
[2018-12-05] MEDS: LIOTHYRONINE SODIUM 5MCG TABLET PO SCH (09:22)
[2018-12-05] MEDS: POTASSIUM CHLORIDE 8 MEQ TABLET.SA PO SCH (09:23)
[2018-12-05] MEDS: BUSPIRONE HCL 10MG TABLET PO SCH (09:23)
[2018-12-05] MEDS: DIAZEPAM 5 MG TABLET PO SCH (09:23)
[2018-12-05] MEDS: ASPIRIN 81MG TABLET PO SCH (09:23)
[2018-12-05] MEDS: SPIRONOLACTONE 50MG TABLET PO SCH (09:26)
[2018-12-05] MEDS ORDERED: POTASSIUM CHLORIDE 20MEQ TABLET SR PO NR (11:30)
[2018-12-05 12:00] VITALS: BP 131/79
[2018-12-05 17:54] VITALS: BP 131/79
== END 2018-12-05 18:30 | disposition home or self-care (01) | DRG 427 ==
LOC: ER 16:24 → EDBEDREQ 23:08 → EDBEDREQTM 23:08 → ENRESERV 23:49 → 5WST 11-30 02:04 → 8WST 11-30 20:40
PROVIDERS: ADMIT Internal Medicine; ATTEND Internal Medicine
DX: E03.9 Hypothyroidism, unspecified (principal); G93.40 Encephalopathy, unspecified; I42.0 Dilated cardiomyopathy; I11.0 Hypertensive heart disease with heart failure; I50.9 Heart failure, unspecified; G43.909 Migraine, unspecified, not intractable, without status migrainosus; E11.9 Type 2 diabetes mellitus without complications; E05.00 Thyrotoxicosis with diffuse goiter without thyrotoxic crisis or storm; F31.9 Bipolar disorder, unspecified; J44.9 Chronic obstructive pulmonary disease, unspecified; F41.9 Anxiety disorder, unspecified; Z79.890 Hormone replacement therapy; Z87.891 Personal history of nicotine dependence; Z83.3 Family history of diabetes mellitus; Z95.810 Presence of automatic (implantable) cardiac defibrillator; Z88.8 Allergy status to other drugs, medicaments and biological substances; Z79.82 Long term (current) use of aspirin; Z79.899 Other long term (current) drug therapy; Z87.442 Personal history of urinary calculi
CPT/HCPCS: 36415; 71045; 74021; 80048; 82533; 82962; 83036; 83880; 84439; 84443; 84480; 84484; 93005; 96374; 96375; 99285; J1200; J1650; J1815; J2405; J2765; J3490

== ENCOUNTER 2019-01-13 14:59 | Inpatient (IN) | payer MEDICAID ==
[~2019-01-13] VITALS: Ht 160 cm; Wt 71.2 kg
[~2019-01-13 14:59] MED LIST changes: -ASPI-1159 PO; +ASPI-1393 PO; +BACL-141 PO; -BUSP-29 PO; +HYDR50SY PO; +LEVO750T46 PO; +PARO30TA76 PO; +QUET25TA PO; +VENL75TA86 PO; -[UNRECOGNIZED DRUG - OTHER]
[2019-01-13] MEDS ORDERED: SODIUM CHLORIDE 0.9% 1,000 ML IV ONE (15:35)
[2019-01-13] MEDS ORDERED: MORPHINE SULFATE 4 MG/ML CPJ (NOT FOR IM USE) IV STA (15:35)
[2019-01-13] MEDS ORDERED: ONDANSETRON HCL 4MG/2ML INJ IV STA (15:35)
[2019-01-13 15:52] LABS: CHLORIDE 114 mEq/L (98-107)
[2019-01-13 15:56] LABS: BASOPHILS % 0.2 % (0.0-2.0); EOSINOPHILS % 4.8 % (0.0-5.0); HEMATOCRIT. 35.1 % (36.0-48.0); LYMPHOCYTES % 25.6 % (20.0-50.0); MEAN CORPUSCULAR HEMOGLOBIN 33.4 pg (28.0-32.0); MEAN CORPUSCULAR VOLUME 97.5 fL (81.0-99.0); MEAN PLATELET VOLUME 8.4 fl (7.4-10.4); MONOCYTES % 6.3 % (2.0-8.0); NEUTROPHILS % 63.1 % (40.0-76.0); PLATELET 231 x1000/uL (130-400)
[2019-01-13 15:57] LABS: D-DIMER 0.93 mg/L FEU (<0.50)
[2019-01-13 16:04] LABS: HCG SCREEN NEGATIVE
[2019-01-13] MEDS ORDERED: MORPHINE SULFATE 4 MG/ML CPJ (NOT FOR IM USE) IV ONE (17:00)
[2019-01-13] MEDS ORDERED: IOHEXOL-350 100 ML BOTTLE ONE (18:21)
[2019-01-13] MEDS ORDERED: LEVOFLOXACIN 750MG PREMIX 150 ML IV ONE (18:30)
[2019-01-13] MEDS ORDERED: SODIUM CHLORIDE 0.9% 1000ML BAG (SEPSIS BOLUS) IV ONE (18:30)
[2019-01-13] MEDS ORDERED: ASPIRIN 325MG EC TABLET PO ONE (18:30)
[2019-01-13] MEDS ORDERED: ALBUTEROL (0.083%) 2.5MG/3ML NEB HHN STA (18:34)
[2019-01-13] MEDS ORDERED: FAMOTIDINE 20MG/2ML VIAL IV ONE (18:45)
[2019-01-13] MEDS ORDERED: DIPHENHYDRAMINE 50MG/ML VIAL IV ONE (18:45)
[2019-01-13] MEDS ORDERED: EPINEPHRINE 1:1000 1 MG/ML AMP INJ ONE ×2 (18:45→19:00)
[2019-01-13] MEDS ORDERED: METHYLPREDNISOLONE SOD SUCC 125 MG/2 ML VIAL IV ONE (18:45)
[2019-01-13] MEDS ORDERED: RACEPINEPHRINE 2.25% 0.5ML NEB VIAL HHN ONE (19:00)
[2019-01-13] MEDS ORDERED: IPRATROPIUM BROMIDE (0.02%) 0.5MG/2.5ML NEB ONE (19:02)
[2019-01-13] MEDS ORDERED: RACEPINEPHRINE 2.25% 0.5ML NEB VIAL ONE (19:02)
[2019-01-13] MEDS ORDERED: ETOMIDATE 2MG/ML 10ML VIAL IV ONE ×2 (19:37→19:45)
[2019-01-13] MEDS ORDERED: SODIUM CHLORIDE 0.9% 10ML VIAL ONE (19:37)
[2019-01-13] MEDS ORDERED: VECURONIUM BROMIDE 10 MG/VIAL IV ONE ×2 (19:37→19:45)
[2019-01-13] MEDS ORDERED: SUCCINYLCHOLINE CHLORIDE 200MG/10ML IV ONE (19:45)
[2019-01-13] MEDS ORDERED: PROPOFOL 10MG/ML 100ML 100 ML IV ONE ×2 (19:45→19:47)
[2019-01-13 20:33] LABS: BG BASE EXCESS -6.9 mmol/L (-2.0-2.0); BG CARBOXYHEMOGLOBIN 1.3 % (0.5-1.5); BG DEOXYHEMOGLOBIN 0.9 % (0.0-5.0); BG FRACTION INSPIRED OXYGEN 100; BG HCO3 ACT 18.9 mmol/L (22.0-26.0); BG METHEMOGLOBIN 0.7 % (0.0-1.5); BG OXYGEN SATURATION 99.1 % (92.0-98.5); BG OXYHEMOGLOBIN 97.1 % (94.0-97.0); BG PCO2 38.9 mmHg (35.0-45.0); BG PH 7.304 (7.350-7.450); BG SAMPLE SITE RIGHT BRACHIAL; BG TIDAL VOLUME(mL) 500 mL; BG TOTAL HEMOGLOBIN 12.6 g/dL (12.0-18.0); BG VENT MODE VENT - A/C; BG VENT RATE 14 set
[2019-01-13 21:13] LABS: CLARITY URINE CLEAR (CLEAR); COLOR URINE YELLOW (YELLOW); KETONES URINE 1+ (NEGATIVE); LEUKOCYTE ESTERASE URINE NEGATIVE (NEGATIVE); NITRITE URINE NEGATIVE (NEGATIVE); OCCULT BLOOD URINE NEGATIVE (NEGATIVE); PROTEIN URINE NEGATIVE (NEGATIVE); SPECIFIC GRAVITY URINE 1.058 (1.005-1.030); UROBILINOGEN URINE 0.2 E.U./dL (0.2-1.0)
[2019-01-13 23:08] VITALS: BP 154/106
[2019-01-13 23:15] VITALS: BP 163/92
[2019-01-13 23:30] VITALS: BP 156/97
[2019-01-13 23:45] VITALS: BP 167/98
[2019-01-13 23:50] VITALS: BP 163/92
[2019-01-14] VITALS (99 sets, daily range): BP systolic 116–182; BP diastolic 53–123
[2019-01-14] MEDS ORDERED: DEXTROSE 50% WATER 50ML SYRINGE IV PRN (00:30)
[2019-01-14] MEDS ORDERED: DIPHENHYDRAMINE 50MG/ML VIAL IM PRN (00:30)
[2019-01-14] MEDS: MIDAZOLAM HCL 100 MG in DEXT 5% WATER 80 ML IV PRN ×3 (00:39→19:44)
[2019-01-14] MEDS: PROPOFOL 10MG/ML 100ML 100 ML IV PRN ×3 (00:40→07:31)
[2019-01-14] MEDS ORDERED: NON FORMULARY PATIENT HOME MED XX SCH (01:15)
[2019-01-14] MEDS: LEVOFLOXACIN 500MG PREMIX 100 ML IV SCH (02:37)
[2019-01-14] MEDS: IPRATROPIUM/ALBUTEROL 0.5-3(2.5)MG/3ML NEB HHN SCH ×6 (02:56→23:53)
[2019-01-14 04:53] LABS: HEMOGLOBIN. 11.7 g/dL (12.0-16.0); MEAN CORPUSCULAR HEMOGLOBIN 32.6 pg (28.0-32.0); MEAN CORPUSCULAR VOLUME 97.7 fL (81.0-99.0); RED BLOOD CELL COUNT 3.58 mill/uL (4.2-5.4); RED CELL DISTRIBUTION WIDTH 12.8 % (11.6-14.6)
[2019-01-14 04:59] LABS: CHLORIDE 111 mEq/L (98-107)
[2019-01-14 05:05] LABS: LDL CHOLESTEROL 103 mg/dL (5-100)
[2019-01-14 05:06] LABS: CREATINE KINASE 63 IU/L (26-192)
[2019-01-14 05:07] LABS: HDL CHOLESTEROL 27 mg/dL (40-59)
[2019-01-14 05:09] LABS: CREATINE KINASE MB FRACTION < 1.0 ng/mL (0.5-3.6)
[2019-01-14] MEDS: BLOOD SUGAR DIAGNOSTIC STRIP TEST SCH ×4 (05:54→23:51)
[2019-01-14] MEDS: INSULIN LISPRO 100 UNITS/ML SUBCUT SCH ×3 (05:56→18:28)
[2019-01-14 06:48] LABS: PLATELET ESTIMATE NORMAL
[2019-01-14 06:51] LABS: PLATELET 193 x1000/uL (130-400)
[2019-01-14 08:28] LABS: BG BASE EXCESS -2.6 mmol/L (-2.0-2.0); BG CARBOXYHEMOGLOBIN 0.3 % (0.5-1.5); BG DEOXYHEMOGLOBIN 1.6 % (0.0-5.0); BG FRACTION INSPIRED OXYGEN 60; BG HCO3 ACT 21.3 mmol/L (22.0-26.0); BG METHEMOGLOBIN 0.1 % (0.0-1.5); BG OXYGEN SATURATION 98.4 % (92.0-98.5); BG PCO2 33.7 mmHg (35.0-45.0); BG PH 7.418 (7.350-7.450); BG PO2 142.2 mmHg (75.0-100.0); BG SAMPLE SITE RIGHT RADIAL; BG TIDAL VOLUME(mL) 500 mL; BG TOTAL HEMOGLOBIN 12.1 g/dL (12.0-18.0); BG VENT MODE VENT - A/C; BG VENT RATE 16 set
[2019-01-14] MEDS ORDERED: LEVOTHYROXINE SODIUM 125MCG TABLET PO SCH (09:00)
[2019-01-14] MEDS: ENOXAPARIN 40MG/0.4ML SYR SUBCUT SCH (09:23)
[2019-01-14] MEDS: PANTOPRAZOLE SODIUM 40 MG/VIAL IV SCH (09:23)
[2019-01-14] MEDS: CARVEDILOL 12.5MG TABLET PO SCH ×2 (10:24→20:44)
[2019-01-14] MEDS: ATORVASTATIN CALCIUM 40MG TABLET PO SCH (10:26)
[2019-01-14] MEDS: LORAZEPAM 2MG/ML CPJ IV PRN ×2 (10:44→19:26)
[2019-01-14] MEDS: HYDROMORPHONE HCL/PF 2MG/ML CPJ IV PRN ×2 (11:46→20:44)
[2019-01-14] MEDS: METHYLPREDNISOLONE SOD SUCC 40 MG/ML VIAL IV SCH ×2 (12:07→18:36)
[2019-01-14] MEDS: LEVOTHYROXINE SODIUM 150MCG TABLET PO SCH (12:07)
[2019-01-14] MEDS: SPIRONOLACTONE 50MG TABLET PO SCH (12:07)
[2019-01-14] MEDS: PAROXETINE HCL 10MG TABLET PO SCH (12:07)
[2019-01-14] MEDS: FENTANYL CITRATE/PF 500 MCG in SODIUM CHLORIDE 0.9% 40 ML IV PRN ×2 (13:55→19:30)
[2019-01-14 15:40] LABS: CREATINE KINASE 54 IU/L (26-192); CREATINE KINASE MB FRACTION < 1.0 ng/mL (0.5-3.6)
[2019-01-14] MEDS: LOSARTAN POTASSIUM 25 MG TABLET PO SCH (15:45)
[2019-01-15] VITALS (85 sets, daily range): BP systolic 107–178; BP diastolic 63–101
[2019-01-15] MEDS: LORAZEPAM 2MG/ML CPJ IV PRN ×2 (00:09→06:24)
[2019-01-15] MEDS: HYDROMORPHONE HCL/PF 2MG/ML CPJ IV PRN ×5 (00:10→15:39)
[2019-01-15] MEDS: FENTANYL CITRATE/PF 500 MCG in SODIUM CHLORIDE 0.9% 40 ML IV PRN ×3 (00:48→12:42)
[2019-01-15] MEDS: METHYLPREDNISOLONE SOD SUCC 40 MG/ML VIAL IV SCH (02:33)
[2019-01-15] MEDS: LEVOFLOXACIN 500MG PREMIX 100 ML IV SCH (02:33)
[2019-01-15] MEDS: IPRATROPIUM/ALBUTEROL 0.5-3(2.5)MG/3ML NEB HHN SCH ×5 (04:14→20:15)
[2019-01-15 05:17] LABS: HEMATOCRIT. 32.8 % (36.0-48.0); MEAN CORPUSCULAR HEMOGLOBIN 32.7 pg (28.0-32.0); MEAN CORPUSCULAR VOLUME 97.7 fL (81.0-99.0); MEAN PLATELET VOLUME 8.7 fl (7.4-10.4); PLATELET 181 x1000/uL (130-400); RED BLOOD CELL COUNT 3.36 mill/uL (4.2-5.4); RED CELL DISTRIBUTION WIDTH 12.8 % (11.6-14.6)
[2019-01-15 05:37] LABS: CHLORIDE 113 mEq/L (98-107)
[2019-01-15 05:49] LABS: T4 FREE 1.04 ng/dL (0.76-1.46)
[2019-01-15] MEDS: BLOOD SUGAR DIAGNOSTIC STRIP TEST SCH ×3 (05:59→17:16)
[2019-01-15] MEDS: INSULIN LISPRO 100 UNITS/ML SUBCUT SCH ×4 (06:11→19:30)
[2019-01-15] MEDS: MIDAZOLAM HCL 100 MG in DEXT 5% WATER 80 ML IV PRN (06:16)
[2019-01-15] MEDS: LEVOTHYROXINE SODIUM 150MCG TABLET PO SCH (06:24)
[2019-01-15 08:26] LABS: BG BASE EXCESS -2.6 mmol/L (-2.0-2.0); BG CARBOXYHEMOGLOBIN 0.3 % (0.5-1.5); BG DEOXYHEMOGLOBIN 2.3 % (0.0-5.0); BG FRACTION INSPIRED OXYGEN 40; BG HCO3 ACT 21.4 mmol/L (22.0-26.0); BG METHEMOGLOBIN 0.1 % (0.0-1.5); BG OXYGEN SATURATION 97.7 % (92.0-98.5); BG OXYHEMOGLOBIN 97.3 % (94.0-97.0); BG PH 7.416 (7.350-7.450); BG PO2 105.5 mmHg (75.0-100.0); BG SAMPLE SITE RIGHT RADIAL; BG TIDAL VOLUME(mL) 500 mL; BG TOTAL HEMOGLOBIN 10.7 g/dL (12.0-18.0); BG VENT MODE VENT - A/C; BG VENT RATE 12 set
[2019-01-15] MEDS: CARVEDILOL 12.5MG TABLET PO SCH ×2 (08:51→21:33)
[2019-01-15] MEDS: PAROXETINE HCL 10MG TABLET PO SCH (08:51)
[2019-01-15] MEDS: ATORVASTATIN CALCIUM 40MG TABLET PO SCH (08:52)
[2019-01-15] MEDS: SPIRONOLACTONE 50MG TABLET PO SCH (08:52)
[2019-01-15] MEDS: LOSARTAN POTASSIUM 25 MG TABLET PO SCH (08:52)
[2019-01-15] MEDS: ENOXAPARIN 40MG/0.4ML SYR SUBCUT SCH (08:52)
[2019-01-15] MEDS: PANTOPRAZOLE SODIUM 40 MG/VIAL IV SCH (08:52)
[2019-01-15 10:31] LABS: PLATELET ESTIMATE NORMAL
[2019-01-15] MEDS: METHYLPREDNISOLONE SOD SUCC 125 MG/2 ML VIAL IV SCH ×3 (11:34→22:20)
[2019-01-15] MEDS: DIPHENHYDRAMINE 50MG/ML VIAL IV SCH ×3 (11:34→22:20)
[2019-01-15] MEDS: PROPOFOL 10MG/ML 100ML 100 ML IV PRN ×3 (13:10→21:33)
[2019-01-15] MEDS: CLONIDINE 0.1MG TABLET NG PRN (19:31)
[2019-01-15] MEDS: DOCUSATE SODIUM SUGAR FREE 100MG/10ML UDC NG PRN (19:31)
[2019-01-15] MEDS: FAMOTIDINE 20MG/2ML VIAL IV SCH (21:33)
[2019-01-15] MEDS: SODIUM CHLORIDE 0.9% 1,000 ML IV SCH (21:34)
[2019-01-16] VITALS (82 sets, daily range): BP systolic 141–178; BP diastolic 73–103
[2019-01-16] MEDS: IPRATROPIUM/ALBUTEROL 0.5-3(2.5)MG/3ML NEB HHN SCH ×6 (00:04→21:14)
[2019-01-16] MEDS: FENTANYL CITRATE/PF 500 MCG in SODIUM CHLORIDE 0.9% 40 ML IV PRN (00:12)
[2019-01-16] MEDS: INSULIN LISPRO 100 UNITS/ML SUBCUT SCH ×5 (00:12→23:58)
[2019-01-16] MEDS: CLONIDINE 0.1MG TABLET NG PRN (01:34)
[2019-01-16] MEDS: LEVOFLOXACIN 500MG PREMIX 100 ML IV SCH (01:34)
[2019-01-16] MEDS: PROPOFOL 10MG/ML 100ML 100 ML IV PRN ×6 (01:35→23:58)
[2019-01-16] MEDS: FENTANYL CITRATE/PF 1,000 MCG in SODIUM CHLORIDE 0.9% 80 ML IV PRN ×2 (04:27→14:37)
[2019-01-16 05:35] LABS: HEMATOCRIT. 34.1 % (36.0-48.0); HEMOGLOBIN. 11.8 g/dL (12.0-16.0); MEAN CORPUSCULAR HEMOGLOBIN 33.3 pg (28.0-32.0); MEAN CORPUSCULAR VOLUME 96.6 fL (81.0-99.0); MEAN PLATELET VOLUME 9.2 fl (7.4-10.4); PLATELET 185 x1000/uL (130-400); RED BLOOD CELL COUNT 3.53 mill/uL (4.2-5.4); RED CELL DISTRIBUTION WIDTH 12.9 % (11.6-14.6)
[2019-01-16 05:44] LABS: CHLORIDE 111 mEq/L (98-107)
[2019-01-16] MEDS: LEVOTHYROXINE SODIUM 150MCG TABLET PO SCH (05:57)
[2019-01-16] MEDS: DIPHENHYDRAMINE 50MG/ML VIAL IV SCH ×4 (05:57→23:56)
[2019-01-16] MEDS: METHYLPREDNISOLONE SOD SUCC 125 MG/2 ML VIAL IV SCH ×4 (05:57→23:56)
[2019-01-16] MEDS: BLOOD SUGAR DIAGNOSTIC STRIP TEST SCH ×5 (06:00→23:51)
[2019-01-16] MEDS: FAMOTIDINE 20MG/2ML VIAL IV SCH ×2 (09:20→21:16)
[2019-01-16] MEDS: LOSARTAN POTASSIUM 25 MG TABLET PO SCH ×2 (09:21→21:16)
[2019-01-16] MEDS: ATORVASTATIN CALCIUM 40MG TABLET PO SCH (09:21)
[2019-01-16] MEDS: SPIRONOLACTONE 50MG TABLET PO SCH (09:21)
[2019-01-16] MEDS: ENOXAPARIN 40MG/0.4ML SYR SUBCUT SCH (09:23)
[2019-01-16] MEDS: DOCUSATE SODIUM SUGAR FREE 100MG/10ML UDC NG PRN ×2 (09:25→18:03)
[2019-01-16] MEDS: PAROXETINE HCL 10MG TABLET PO SCH (09:32)
[2019-01-16] MEDS: CARVEDILOL 12.5MG TABLET PO SCH (09:32)
[2019-01-16 11:12] LABS: PLATELET ESTIMATE NORMAL
[2019-01-16] MEDS ORDERED: CARVEDILOL 25MG TABLET PO SCH (15:13)
[2019-01-16] MEDS: SODIUM CHLORIDE 0.9% 1,000 ML IV SCH (20:00)
[2019-01-16] MEDS: LORAZEPAM 2MG/ML CPJ IV PRN (20:02)
[2019-01-17] VITALS (68 sets, daily range): BP systolic 146–199; BP diastolic 81–114
[2019-01-17] MEDS: IPRATROPIUM/ALBUTEROL 0.5-3(2.5)MG/3ML NEB HHN SCH ×5 (00:32→20:22)
[2019-01-17] MEDS: CLONIDINE 0.1MG TABLET NG PRN ×3 (01:49→16:40)
[2019-01-17] MEDS: FENTANYL CITRATE/PF 1,000 MCG in SODIUM CHLORIDE 0.9% 80 ML IV PRN (01:50)
[2019-01-17] MEDS: PROPOFOL 10MG/ML 100ML 100 ML IV PRN ×2 (04:14→08:23)
[2019-01-17 05:15] LABS: HEMATOCRIT. 33.5 % (36.0-48.0); HEMOGLOBIN. 11.4 g/dL (12.0-16.0); MEAN CORPUSCULAR HEMOGLOBIN 32.8 pg (28.0-32.0); MEAN CORPUSCULAR VOLUME 96.7 fL (81.0-99.0); MEAN PLATELET VOLUME 8.8 fl (7.4-10.4); PLATELET 180 x1000/uL (130-400); RED BLOOD CELL COUNT 3.47 mill/uL (4.2-5.4); RED CELL DISTRIBUTION WIDTH 12.8 % (11.6-14.6)
[2019-01-17 05:40] LABS: CHLORIDE 109 mEq/L (98-107)
[2019-01-17] MEDS: BLOOD SUGAR DIAGNOSTIC STRIP TEST SCH ×3 (06:14→23:42)
[2019-01-17] MEDS: LEVOTHYROXINE SODIUM 150MCG TABLET PO SCH (06:20)
[2019-01-17] MEDS: DIPHENHYDRAMINE 50MG/ML VIAL IV SCH ×4 (06:20→23:48)
[2019-01-17] MEDS: METHYLPREDNISOLONE SOD SUCC 125 MG/2 ML VIAL IV SCH ×4 (06:20→23:48)
[2019-01-17] MEDS: INSULIN LISPRO 100 UNITS/ML SUBCUT SCH ×4 (06:21→23:48)
[2019-01-17] MEDS: FAMOTIDINE 20MG/2ML VIAL IV SCH ×2 (08:23→20:31)
[2019-01-17] MEDS: ATORVASTATIN CALCIUM 40MG TABLET PO SCH (08:23)
[2019-01-17] MEDS: SPIRONOLACTONE 50MG TABLET PO SCH (08:23)
[2019-01-17] MEDS: VALSARTAN PO SCH ×2 (08:24→20:29)
[2019-01-17] MEDS: SACUBITRIL PO SCH ×2 (08:24→20:29)
[2019-01-17] MEDS: PAROXETINE HCL 10MG TABLET PO SCH (08:24)
[2019-01-17] MEDS: ENOXAPARIN 40MG/0.4ML SYR SUBCUT SCH (08:25)
[2019-01-17] MEDS: CARVEDILOL 12.5MG TABLET PO SCH ×2 (08:46→20:30)
[2019-01-17] MEDS ORDERED: NON FORMULARY PATIENT HOME MED XX SCH (09:00)
[2019-01-17] MEDS ORDERED: LIDOCAINE HCL/PF 1% 2ML VIAL ONE (09:14)
[2019-01-17] MEDS ORDERED: RACEPINEPHRINE 2.25% 0.5ML NEB VIAL HHN NR (09:30)
[2019-01-17] MEDS ORDERED: RACEPINEPHRINE 2.25% 0.5ML NEB VIAL HHN PRN (09:30)
[2019-01-17] MEDS ORDERED: LORAZEPAM 2MG/ML CPJ IV NR (09:45)
[2019-01-17] MEDS ORDERED: DOCUSATE SODIUM SUGAR FREE 100MG/10ML UDC PO PRN (12:00)
[2019-01-17 12:57] LABS: BG BASE EXCESS 1.4 mmol/L (-2.0-2.0); BG CARBOXYHEMOGLOBIN 0.6 % (0.5-1.5); BG DEOXYHEMOGLOBIN 5.3 % (0.0-5.0); BG FRACTION INSPIRED OXYGEN 40; BG HCO3 ACT 25.7 mmol/L (22.0-26.0); BG METHEMOGLOBIN 0.2 % (0.0-1.5); BG OXYGEN SATURATION 94.7 % (92.0-98.5); BG OXYHEMOGLOBIN 93.9 % (94.0-97.0); BG PCO2 39.5 mmHg (35.0-45.0); BG PH 7.431 (7.350-7.450); BG PO2 79.3 mmHg (75.0-100.0); BG PRESSURE SUPPORT 8; BG SAMPLE SITE RIGHT RADIAL; BG TOTAL HEMOGLOBIN 12.7 g/dL (12.0-18.0); BG VENT MODE VENT - CPAP
[2019-01-17] MEDS ORDERED: AMLODIPINE 5MG TABLET PO NR (14:45)
[2019-01-17] MEDS: LORAZEPAM 2MG/ML CPJ IV PRN (14:57)
[2019-01-17] MEDS ORDERED: KCL 20MEQ/100ML PREMIX 100 ML IV NR (15:30)
[2019-01-17] MEDS: FUROSEMIDE 40MG TABLET NG SCH (15:30)
[2019-01-17] MEDS: NICOTINE 21MG PATCH TD SCH (15:35)
[2019-01-17 17:53] LABS: PLATELET ESTIMATE NORMAL
[2019-01-17] MEDS ORDERED: POTASSIUM CHLORIDE 20MEQ/PACKET PO NR (18:50)
[2019-01-17] MEDS: SODIUM CHLORIDE 0.9% 1,000 ML IV SCH (20:29)
[2019-01-17] MEDS: HYDROMORPHONE HCL/PF 2MG/ML CPJ IV PRN (20:30)
[2019-01-17] MEDS: DOCUSATE SODIUM 250MG CAPSULE PO PRN (20:31)
[2019-01-18] VITALS (16 sets, daily range): BP systolic 122–154; BP diastolic 76–97
[2019-01-18] MEDS: IPRATROPIUM/ALBUTEROL 0.5-3(2.5)MG/3ML NEB HHN SCH ×6 (00:22→20:48)
[2019-01-18] MEDS: LORAZEPAM 2MG/ML CPJ IV PRN ×2 (02:13→15:18)
[2019-01-18 05:41] LABS: HEMATOCRIT. 36.6 % (36.0-48.0); HEMOGLOBIN. 12.5 g/dL (12.0-16.0); MEAN CORPUSCULAR HEMOGLOBIN 32.7 pg (28.0-32.0); MEAN CORPUSCULAR VOLUME 95.7 fL (81.0-99.0); MEAN PLATELET VOLUME 9.1 fl (7.4-10.4); PLATELET 189 x1000/uL (130-400); RED BLOOD CELL COUNT 3.83 mill/uL (4.2-5.4); RED CELL DISTRIBUTION WIDTH 12.7 % (11.6-14.6)
[2019-01-18 05:46] LABS: CHLORIDE 99 mEq/L (98-107)
[2019-01-18] MEDS: BLOOD SUGAR DIAGNOSTIC STRIP TEST SCH ×3 (06:05→17:52)
[2019-01-18] MEDS: METHYLPREDNISOLONE SOD SUCC 125 MG/2 ML VIAL IV SCH (06:15)
[2019-01-18] MEDS: LEVOTHYROXINE SODIUM 150MCG TABLET PO SCH (06:15)
[2019-01-18] MEDS: DIPHENHYDRAMINE 50MG/ML VIAL IV SCH ×4 (06:15→23:31)
[2019-01-18] MEDS: INSULIN LISPRO 100 UNITS/ML SUBCUT SCH ×3 (06:16→18:13)
[2019-01-18 07:50] LABS: PLATELET ESTIMATE NORMAL
[2019-01-18] MEDS: ATORVASTATIN CALCIUM 40MG TABLET PO SCH (09:13)
[2019-01-18] MEDS: SPIRONOLACTONE 50MG TABLET PO SCH (09:14)
[2019-01-18] MEDS: AMLODIPINE 5MG TABLET PO SCH (09:14)
[2019-01-18] MEDS: FUROSEMIDE 40MG TABLET NG SCH (09:14)
[2019-01-18] MEDS: CARVEDILOL 12.5MG TABLET PO SCH ×2 (09:14→21:18)
[2019-01-18] MEDS: PAROXETINE HCL 10MG TABLET PO SCH (09:15)
[2019-01-18] MEDS: ENOXAPARIN 40MG/0.4ML SYR SUBCUT SCH (09:16)
[2019-01-18] MEDS: SACUBITRIL PO SCH ×2 (09:16→21:18)
[2019-01-18] MEDS: NICOTINE 21MG PATCH TD SCH (09:16)
[2019-01-18] MEDS: VALSARTAN PO SCH ×2 (09:16→21:18)
[2019-01-18] MEDS ORDERED: POTASSIUM CHLORIDE 20MEQ/PACKET NG NR (10:00)
[2019-01-18] MEDS: METHYLPREDNISOLONE SOD SUCC 40 MG/ML VIAL IV SCH ×2 (10:15→17:51)
[2019-01-18] MEDS: DOCUSATE SODIUM 250MG CAPSULE PO PRN (15:19)
[2019-01-18] MEDS: SODIUM CHLORIDE 0.9% 1,000 ML IV SCH (20:00)
[2019-01-18] MEDS: GUAIFENESIN 600MG ER TABLET PO SCH (21:17)
[2019-01-18] MEDS: FAMOTIDINE 20MG TABLET PO SCH (21:18)
[2019-01-19] VITALS: BP 134/84
[2019-01-19] MEDS ORDERED: LORAZEPAM 2MG/ML CPJ IV PRN (00:45)
[2019-01-19] MEDS: IPRATROPIUM/ALBUTEROL 0.5-3(2.5)MG/3ML NEB HHN SCH ×6 (00:48→19:56)
[2019-01-19] MEDS: BLOOD SUGAR DIAGNOSTIC STRIP TEST SCH ×5 (00:52→23:47)
[2019-01-19] MEDS: INSULIN LISPRO 100 UNITS/ML SUBCUT SCH ×4 (00:56→18:51)
[2019-01-19] MEDS: METHYLPREDNISOLONE SOD SUCC 40 MG/ML VIAL IV SCH ×3 (00:56→16:56)
[2019-01-19 04:00] VITALS: BP 143/92
[2019-01-19] MEDS: DIPHENHYDRAMINE 50MG/ML VIAL IV SCH ×4 (05:46→23:53)
[2019-01-19] MEDS: LEVOTHYROXINE SODIUM 150MCG TABLET PO SCH (05:47)
[2019-01-19 08:00] VITALS: BP 138/77
[2019-01-19 08:47] LABS: HEMATOCRIT. 39.4 % (36.0-48.0); HEMOGLOBIN. 13.3 g/dL (12.0-16.0); MEAN CORPUSCULAR HEMOGLOBIN 32.2 pg (28.0-32.0); MEAN CORPUSCULAR VOLUME 95.2 fL (81.0-99.0); MEAN PLATELET VOLUME 9.2 fl (7.4-10.4); PLATELET 190 x1000/uL (130-400); RED BLOOD CELL COUNT 4.14 mill/uL (4.2-5.4); RED CELL DISTRIBUTION WIDTH 12.2 % (11.6-14.6)
[2019-01-19 08:57] LABS: CHLORIDE 99 mEq/L (98-107)
[2019-01-19] MEDS: FUROSEMIDE 40MG TABLET NG SCH (09:00)
[2019-01-19 09:59] LABS: PLATELET ESTIMATE NORMAL
[2019-01-19] MEDS: NICOTINE 21MG PATCH TD SCH (10:02)
[2019-01-19] MEDS: ENOXAPARIN 40MG/0.4ML SYR SUBCUT SCH (10:02)
[2019-01-19] MEDS: VALSARTAN PO SCH ×2 (10:03→20:58)
[2019-01-19] MEDS: SACUBITRIL PO SCH ×2 (10:03→20:58)
[2019-01-19] MEDS: ATORVASTATIN CALCIUM 40MG TABLET PO SCH (10:03)
[2019-01-19] MEDS: PAROXETINE HCL 10MG TABLET PO SCH (10:04)
[2019-01-19] MEDS: SPIRONOLACTONE 50MG TABLET PO SCH (10:05)
[2019-01-19] MEDS: AMLODIPINE 5MG TABLET PO SCH (10:05)
[2019-01-19] MEDS: GUAIFENESIN 600MG ER TABLET PO SCH ×2 (10:55→20:57)
[2019-01-19] MEDS: CARVEDILOL 12.5MG TABLET PO SCH ×2 (10:58→20:58)
[2019-01-19] MEDS ORDERED: SUMATRIPTAN SUCCINATE 6MG/0.5ML VIAL SUBCUT PRN (11:15)
[2019-01-19] MEDS ORDERED: GUAIFENESIN-DM 200MG-20MG/10ML UDC PO PRN (11:15)
[2019-01-19 12:00] VITALS: BP 117/76
[2019-01-19] MEDS ORDERED: THROAT LOZENGES-BENZOCAINE/MENTH/CETYLPYRD CL LOZENGES MM PRN (14:30)
[2019-01-19 16:00] VITALS: BP 121/73
[2019-01-19] MEDS: LORAZEPAM 2MG/ML CPJ IV PRN (17:00)
[2019-01-19 20:00] VITALS: BP 117/69
[2019-01-19] MEDS: SODIUM CHLORIDE 0.9% 1,000 ML IV SCH (20:00)
[2019-01-19] MEDS: ZOLPIDEM TARTRATE 5MG TABLET PO PRN (20:57)
[2019-01-19] MEDS: FAMOTIDINE 20MG TABLET PO SCH (20:57)
[2019-01-19] MEDS: INSULIN GLARGINE UD 100 UNITS/ML SYR SUBCUT SCH (21:13)
[2019-01-20] VITALS: BP 122/68
[2019-01-20] MEDS: INSULIN LISPRO 100 UNITS/ML SUBCUT SCH ×4 (00:03→18:00)
[2019-01-20 04:00] VITALS: BP 126/82
[2019-01-20] MEDS: IPRATROPIUM/ALBUTEROL 0.5-3(2.5)MG/3ML NEB HHN SCH ×7 (04:00→23:38)
[2019-01-20] MEDS: DIPHENHYDRAMINE 50MG/ML VIAL IV SCH ×3 (05:14→18:30)
[2019-01-20] MEDS: BLOOD SUGAR DIAGNOSTIC STRIP TEST SCH ×3 (05:17→18:07)
[2019-01-20] MEDS: LEVOTHYROXINE SODIUM 150MCG TABLET PO SCH (06:27)
[2019-01-20 08:00] VITALS: BP 114/65
[2019-01-20 08:06] LABS: HEMATOCRIT. 39.3 % (36.0-48.0); HEMOGLOBIN. 13.3 g/dL (12.0-16.0); MEAN CORPUSCULAR HEMOGLOBIN 32.2 pg (28.0-32.0); MEAN CORPUSCULAR VOLUME 95.4 fL (81.0-99.0); MEAN PLATELET VOLUME 9.1 fl (7.4-10.4); PLATELET 199 x1000/uL (130-400); RED BLOOD CELL COUNT 4.11 mill/uL (4.2-5.4); RED CELL DISTRIBUTION WIDTH 12.6 % (11.6-14.6)
[2019-01-20 08:16] LABS: CHLORIDE 102 mEq/L (98-107)
[2019-01-20] MEDS: METHYLPREDNISOLONE SOD SUCC 40 MG/ML VIAL IV SCH ×2 (08:52→18:30)
[2019-01-20] MEDS: NICOTINE 21MG PATCH TD SCH (08:53)
[2019-01-20] MEDS: AMLODIPINE 5MG TABLET PO SCH (08:54)
[2019-01-20] MEDS: PAROXETINE HCL 10MG TABLET PO SCH (08:54)
[2019-01-20] MEDS: ENOXAPARIN 40MG/0.4ML SYR SUBCUT SCH (08:54)
[2019-01-20] MEDS: GUAIFENESIN 600MG ER TABLET PO SCH ×2 (08:54→21:00)
[2019-01-20] MEDS: ATORVASTATIN CALCIUM 40MG TABLET PO SCH (08:54)
[2019-01-20] MEDS: DOCUSATE SODIUM 250MG CAPSULE PO PRN (08:55)
[2019-01-20] MEDS: CARVEDILOL 12.5MG TABLET PO SCH ×2 (08:55→21:27)
[2019-01-20] MEDS: SPIRONOLACTONE 50MG TABLET PO SCH (08:56)
[2019-01-20] MEDS: VALSARTAN PO SCH ×2 (08:57→21:10)
[2019-01-20] MEDS: SACUBITRIL PO SCH ×2 (08:57→21:10)
[2019-01-20] MEDS: FUROSEMIDE 40MG TABLET NG SCH (08:59)
[2019-01-20] MEDS: INSULIN GLARGINE UD 100 UNITS/ML SYR SUBCUT SCH ×2 (10:46→22:11)
[2019-01-20 12:00] VITALS: BP 112/75
[2019-01-20 12:22] LABS: PLATELET ESTIMATE NORMAL
[2019-01-20 16:00] VITALS: BP 100/55
[2019-01-20 20:00] VITALS: BP 138/87
[2019-01-20] MEDS ORDERED: LEVOFLOXACIN 500MG PREMIX 100 ML IV SCH (20:00)
[2019-01-20] MEDS: LORAZEPAM 2MG/ML CPJ IV PRN (20:30)
[2019-01-20] MEDS: ZOLPIDEM TARTRATE 5MG TABLET PO PRN (20:44)
[2019-01-20] MEDS: FAMOTIDINE 20MG TABLET PO SCH (21:10)
[2019-01-21] VITALS: BP 135/70
[2019-01-21] MEDS: DIPHENHYDRAMINE 50MG/ML VIAL IV SCH ×2 (00:32→11:24)
[2019-01-21] MEDS: BLOOD SUGAR DIAGNOSTIC STRIP TEST SCH ×3 (00:39→11:30)
[2019-01-21] MEDS: INSULIN LISPRO 100 UNITS/ML SUBCUT SCH ×3 (00:43→14:27)
[2019-01-21] MEDS: IPRATROPIUM/ALBUTEROL 0.5-3(2.5)MG/3ML NEB HHN SCH ×3 (03:53→12:42)
[2019-01-21 06:00] VITALS: BP 138/72
[2019-01-21 07:36] LABS: BASOPHILS % 0.2 % (0.0-2.0); HEMATOCRIT. 39.6 % (36.0-48.0); HEMOGLOBIN. 13.6 g/dL (12.0-16.0); LYMPHOCYTES % 7.6 % (20.0-50.0); MEAN CORPUSCULAR HEMOGLOBIN 32.9 pg (28.0-32.0); MEAN CORPUSCULAR VOLUME 95.4 fL (81.0-99.0); MEAN PLATELET VOLUME 8.9 fl (7.4-10.4); MONOCYTES % 11.3 % (2.0-8.0); NEUTROPHILS % 80.9 % (40.0-76.0); PLATELET 198 x1000/uL (130-400); RED BLOOD CELL COUNT 4.15 mill/uL (4.2-5.4); RED CELL DISTRIBUTION WIDTH 12.6 % (11.6-14.6)
[2019-01-21 07:50] LABS: CHLORIDE 104 mEq/L (98-107)
[2019-01-21 08:00] VITALS: BP 129/82
[2019-01-21] MEDS: FUROSEMIDE 40MG TABLET NG SCH (09:00)
[2019-01-21 09:12] LABS: T4 FREE 1.4 ng/dL (0.76-1.46)
[2019-01-21] MEDS: NICOTINE 21MG PATCH TD SCH (09:32)
[2019-01-21] MEDS: GUAIFENESIN 600MG ER TABLET PO SCH (09:33)
[2019-01-21] MEDS: CARVEDILOL 12.5MG TABLET PO SCH (09:33)
[2019-01-21] MEDS: AMLODIPINE 5MG TABLET PO SCH (09:33)
[2019-01-21] MEDS: SPIRONOLACTONE 50MG TABLET PO SCH (09:33)
[2019-01-21] MEDS: ATORVASTATIN CALCIUM 40MG TABLET PO SCH (09:33)
[2019-01-21] MEDS: ENOXAPARIN 40MG/0.4ML SYR SUBCUT SCH (09:34)
[2019-01-21] MEDS: SACUBITRIL PO SCH (09:34)
[2019-01-21] MEDS: VALSARTAN PO SCH (09:34)
[2019-01-21] MEDS: PAROXETINE HCL 10MG TABLET PO SCH (09:34)
[2019-01-21] MEDS: METHYLPREDNISOLONE SOD SUCC 40 MG/ML VIAL IV SCH (09:34)
[2019-01-21] MEDS: INSULIN GLARGINE UD 100 UNITS/ML SYR SUBCUT SCH (09:35)
[2019-01-21] MEDS: LORAZEPAM 2MG/ML CPJ IV PRN (09:38)
[2019-01-21 12:00] VITALS: BP 117/78
[2019-01-21] MEDS ORDERED: FURO40TA5 NG (13:41)
[2019-01-21] MEDS ORDERED: AMLO5TAB88 PO (13:41)
[2019-01-21] MEDS ORDERED: NICO-682 TD (13:41)
[2019-01-21] MEDS ORDERED: PANT40TA4 MT (13:41)
[2019-01-21] MEDS ORDERED: GUAI-740 MT (13:41)
[2019-01-21] MEDS ORDERED: P20 MT (13:41)
[2019-01-21] MEDS ORDERED: ALD50 PO (13:41)
[2019-01-21] MEDS ORDERED: COR12 PO (13:41)
[2019-01-21] MEDS ORDERED: FAMO20TA8 PO (13:41)
[2019-01-21] MEDS ORDERED: ZOLP5TAB2 MT (13:42)
[2019-01-21 14:10] VITALS: BP 117/78
[2019-01-22] MEDS ORDERED: LEVOTHYROXINE SODIUM 150MCG TABLET PO SCH (06:45)
== END 2019-01-21 15:20 | disposition home or self-care (01) | DRG 811 ==
LOC: ER 17:23 → MICUSO 21:43 → EDBEDREQ 21:47 → EDBEDREQTM 21:47 → ENRESERV 22:04 → 5WST 01-18 12:16
PROVIDERS: ADMIT Internal Medicine; ATTEND Internal Medicine
PROC: 5A1945Z Respiratory Ventilation, 24-96 Consecutive Hours (ICD-10-PCS; principal; 2019-01-13)
PROC: 0BH17EZ Insertion of Endotracheal Airway into Trachea, Via Natural or Artificial Opening (ICD-10-PCS; 2019-01-13)
DX: T88.6XXA Anaphylactic reaction due to adverse effect of correct drug or medicament properly administered, initial encounter (principal); J96.00 Acute respiratory failure, unspecified whether with hypoxia or hypercapnia; I50.23 Acute on chronic systolic (congestive) heart failure; J18.1 Lobar pneumonia, unspecified organism; E87.2 Acidosis; I42.0 Dilated cardiomyopathy; I11.0 Hypertensive heart disease with heart failure; I50.22 Chronic systolic (congestive) heart failure; T50.8X5A Adverse effect of diagnostic agents, initial encounter; E11.65 Type 2 diabetes mellitus with hyperglycemia; E89.0 Postprocedural hypothyroidism; E78.1 Pure hyperglyceridemia; E87.6 Hypokalemia; K59.00 Constipation, unspecified; T38.0X5A Adverse effect of glucocorticoids and synthetic analogues, initial encounter; G43.909 Migraine, unspecified, not intractable, without status migrainosus; Z95.810 Presence of automatic (implantable) cardiac defibrillator; F31.9 Bipolar disorder, unspecified; N20.0 Calculus of kidney; E05.00 Thyrotoxicosis with diffuse goiter without thyrotoxic crisis or storm; I42.9 Cardiomyopathy, unspecified; F17.210 Nicotine dependence, cigarettes, uncomplicated; F41.9 Anxiety disorder, unspecified; Z88.1 Allergy status to other antibiotic agents; Z79.4 Long term (current) use of insulin; Z91.041 Radiographic dye allergy status; Z78.1 Physical restraint status; Y92.89 Other specified places as the place of occurrence of the external cause; Z88.5 Allergy status to narcotic agent; Z79.84 Long term (current) use of oral hypoglycemic drugs; Z79.899 Other long term (current) drug therapy; Z82.49 Family history of ischemic heart disease and other diseases of the circulatory system; Z83.3 Family history of diabetes mellitus
CPT/HCPCS: 36415; 36600; 70490; 71045; 71100; 71275; 73630; 74177; 80048; 80061; 82375; 82550; 82553; 82805; 82962; 83605; 83735; 83880; 84145; 84439; 84443; 84478; 84481; 84484; 84703; 85379; 87070; 92610; 93005; 93306; 93970; 94002; 94003; 94640; 97162; 97166; 99285; A6261; C9113; J1170; J1200; J1650; J1815; J1956; J2060; J2250; J2270; J2405; J2704; J2920; J2930; J3010; J3480; J3490; J7030; J7040; J7050; J7060; J7611; J7620; Q9967

== ENCOUNTER → 2020-12-29 | Outpatient (CLI) | payer MEDICARE, MEDICAID ==
[~2020-12-29] MED LIST changes: +ALBU18HF2 PO; +ALD50 PO; +ALPR2TAB2 PO; +AMLO5TAB88 PO; -ASPI-1393 PO; +ASPI-1497 PO; -CARV12.545 PO; +COR12 PO; +DOCU50CA11 PO; +FAMO20TA8 PO; -FURO20TA4 PO; +FURO40TA5 NG; +FURO40TA5 PO; +GUAI-740 MT; -HYDR50SY PO; -IBUP-2030 PO; +LEVO137T17 PO; -LEVO750T46 PO; +NICO-789 TD; +P20 MT; +PANT40TA51 MT; -SACU1TAB PO; +SACU1TAB4 PO; -SPIR50TA5 PO; -TRAZ-213 PO; +TRAZ-252 PO; +ZOLP5TAB2 MT
== END | disposition home or self-care (01) ==
LOC: LAB 11:27
PROVIDERS: ATTEND Obstetrics & Gynecology Obstetrics
DX: Z20.822 Contact with and (suspected) exposure to COVID-19 (principal)
CPT/HCPCS: 87426

== ENCOUNTER 2020-12-31 08:10 | Day surgery (SDC) | payer MEDICARE, MEDICAID ==
[~2020-12-31] VITALS: Ht 157.5 cm; Wt 68.0 kg
[~2020-12-31 08:10] MED LIST changes: -ALBU18HF2 IH; -ALD50 PO; -BACL-141 PO; -BUDE0.5A5 IH; -BUSP15TA3 PO; -DIAZ10TA PO; -DOCU-138 PO; -FAMO20TA8 PO; -FURO40TA5 NG; -GUAI-740 MT; -IPRA3AMP9 HHN; -IVAB5TAB PO; -LEVO125T PO; -NICO-789 TD; -P20 MT; -PANT40TA51 MT; -POTA10TA2 PO; -QUET25TA PO; -TRAZ-252 PO; -VENL75TA86 PO
[2020-12-31 09:07] LABS: BASOPHILS % 0.5 % (0.0-2.0); EOSINOPHILS % 5.2 % (0.0-5.0); HEMATOCRIT. 34.9 % (36.0-48.0); HEMOGLOBIN. 12.1 g/dL (12.0-16.0); LYMPHOCYTES % 17.6 % (20.0-50.0); MEAN CORPUSCULAR HEMOGLOBIN 32.4 pg (28.0-32.0); MEAN CORPUSCULAR VOLUME 93.5 fL (81.0-99.0); MEAN PLATELET VOLUME 8.1 fl (7.4-10.4); MONOCYTES % 7.7 % (2.0-8.0); PLATELET 184 x1000/uL (130-400); RED BLOOD CELL COUNT 3.73 mill/uL (4.2-5.4); RED CELL DISTRIBUTION WIDTH 12.8 % (11.6-14.6)
[2020-12-31 09:18] LABS: INR 0.9; PARTIAL THROMBOPLASTIN TIME 28.8 sec (23.4-31.0); PROTHROMBIN TIME 10.2 sec (9.6-11.0)
[2020-12-31 09:21] LABS: CHLORIDE 109 mEq/L (98-107)
[2020-12-31 09:30] LABS: CLARITY URINE CLEAR (CLEAR); COLOR URINE YELLOW (YELLOW); KETONES URINE NEGATIVE (NEGATIVE); LEUKOCYTE ESTERASE URINE TRACE (NEGATIVE); NITRITE URINE NEGATIVE (NEGATIVE); OCCULT BLOOD URINE NEGATIVE (NEGATIVE); PH URINE 5.5 (4.5-8.0); PROTEIN URINE NEGATIVE (NEGATIVE); SPECIFIC GRAVITY URINE 1.016 (1.005-1.030); UROBILINOGEN URINE 0.2 E.U./dL (0.2-1.0)
[2020-12-31 09:40] LABS: UCG SCREEN NEGATIVE
[2020-12-31] MEDS ORDERED: PROPOFOL 200MG/20ML VIAL IV ONE (10:20)
[2020-12-31] MEDS ORDERED: FENTANYL CITRATE/PF 50MCG/ML 2ML VIAL ONE (10:20)
[2020-12-31] MEDS ORDERED: MIDAZOLAM HCL 2 MG/2 ML VIAL ONE (10:21)
[2020-12-31] MEDS ORDERED: ONDANSETRON HCL 4MG/2ML INJ ONE (10:29)
[2020-12-31] MEDS ORDERED: DEXAMETHASONE 4MG/ML 1ML VIAL ONE (10:29)
[2020-12-31] MEDS ORDERED: HYDROMORPHONE HCL/PF 2MG/ML CPJ IV PRN (10:45)
[2020-12-31] MEDS ORDERED: ONDANSETRON HCL 4MG/2ML INJ IV PRN (10:45)
[2020-12-31] MEDS ORDERED: LABETALOL 5MG/ML SYR 20 MG/4 ML SYRINGE IV PRN (10:45)
[2020-12-31] MEDS ORDERED: MEPERIDINE HCL/PF 25MG/ML CPJ IV PRN (10:45)
== END 2020-12-31 14:42 | disposition home or self-care (01) ==
LOC: OR 08:10
PROVIDERS: ATTEND Obstetrics & Gynecology Obstetrics
DX: N92.4 Excessive bleeding in the premenopausal period (principal); E03.9 Hypothyroidism, unspecified; E78.00 Pure hypercholesterolemia, unspecified; F41.9 Anxiety disorder, unspecified; F32.9 Major depressive disorder, single episode, unspecified; I50.9 Heart failure, unspecified; Z79.899 Other long term (current) drug therapy; Z91.041 Radiographic dye allergy status; Z88.6 Allergy status to analgesic agent; Z88.8 Allergy status to other drugs, medicaments and biological substances; Z82.49 Family history of ischemic heart disease and other diseases of the circulatory system; Z83.3 Family history of diabetes mellitus; Z98.890 Other specified postprocedural states
CPT/HCPCS: 36415; 58558; 80053; 81003; 81025; 82962; 85025; 85610; 85730; 88305; J1100; J2250; J2405; J2704; J3010

== ENCOUNTER 2021-02-11 06:08 | Inpatient (IN) | payer MEDICARE, MEDICAID ==
[~2021-02-11] VITALS: Ht 157.5 cm; Wt 66.2 kg
[~2021-02-11 06:08] MED LIST changes: +ACYC200C PO; -ASPI-1497 PO; +CARV25TA47 PO; +CHOL2000 PO; -COR12 PO; +CYCL10TA7 PO; +IBUP-2030 PO; -LEVO137T17 PO; +METF-414 PO; +NITR0.4T49 SL; -ONDA4SOL2 MT; +POTA8CAP20 PO; +SPIR50TA5 PO; -ZOLP5TAB2 MT; +ZOLP5TAB2 PO; +[UNRECOGNIZED DRUG - CODE] PO
[2021-02-11] MEDS ORDERED: SKIN ADHESIVE 0.7 GM EA TOP ONE (06:21)
[2021-02-11] MEDS ORDERED: LIDOCAINE HCL/EPINEPHRINE 1%-EPI 1:100,000 10 ML VIAL ONE (06:21)
[2021-02-11] MEDS ORDERED: METHYLENE BLUE 50 MG/10 ML AMP IV ONE (06:21)
[2021-02-11] MEDS ORDERED: BUPIVACAINE HCL/PF 0.5% (5MG/ML) 10ML ONE (06:22)
[2021-02-11] MEDS ORDERED: VASOPRESSIN 20 UNIT/ML 1ML ONE (06:22)
[2021-02-11] MEDS ORDERED: BACITRACIN 50,000 UNITS/VIAL ONE (06:22)
[2021-02-11] MEDS ORDERED: LACTATED RINGERS 1,000 ML IV SCH (06:30)
[2021-02-11 06:48] LABS: BASOPHILS % 0.5 % (0.0-2.0); EOSINOPHILS % 1.7 % (0.0-5.0); HEMATOCRIT. 37.6 % (36.0-48.0); HEMOGLOBIN. 12.8 g/dL (12.0-16.0); LYMPHOCYTES % 32.3 % (20.0-50.0); MEAN CORPUSCULAR HEMOGLOBIN 31.7 pg (28.0-32.0); MEAN CORPUSCULAR VOLUME 92.9 fL (81.0-99.0); MEAN PLATELET VOLUME 7.9 fl (7.4-10.4); MONOCYTES % 9.3 % (2.0-8.0); NEUTROPHILS % 56.2 % (40.0-76.0); PLATELET 197 x1000/uL (130-400); RED BLOOD CELL COUNT 4.05 mill/uL (4.2-5.4); RED CELL DISTRIBUTION WIDTH 12.3 % (11.6-14.6)
[2021-02-11 06:55] LABS: CHLORIDE 110 mEq/L (98-107)
[2021-02-11 06:57] LABS: CLARITY URINE CLEAR (CLEAR); COLOR URINE YELLOW (YELLOW); KETONES URINE NEGATIVE (NEGATIVE); LEUKOCYTE ESTERASE URINE NEGATIVE (NEGATIVE); NITRITE URINE NEGATIVE (NEGATIVE); OCCULT BLOOD URINE NEGATIVE (NEGATIVE); PH URINE 5.5 (4.5-8.0); PROTEIN URINE NEGATIVE (NEGATIVE); SPECIFIC GRAVITY URINE 1.026 (1.005-1.030)
[2021-02-11 07:00] LABS: PARTIAL THROMBOPLASTIN TIME 27.5 sec (23.4-31.0); PROTHROMBIN TIME 10.5 sec (9.6-11.0)
[2021-02-11 07:01] LABS: UCG SCREEN NEGATIVE
[2021-02-11] MEDS ORDERED: GLYCOPYRROLATE 0.2 MG/ML 2ML VIAL ONE ×2 (08:01→11:34)
[2021-02-11] MEDS ORDERED: ROCURONIUM BROMIDE 10MG/ML VIAL 5ML IV ONE (08:01)
[2021-02-11] MEDS ORDERED: HYDROMORPHONE HCL/PF 2MG/ML (OR) ONE (08:01)
[2021-02-11] MEDS ORDERED: CEFAZOLIN SODIUM 1000MG/VIAL ONE (08:02)
[2021-02-11] MEDS ORDERED: DEXAMETHASONE 4MG/ML 1ML VIAL ONE (08:02)
[2021-02-11] MEDS ORDERED: VECURONIUM BROMIDE 10 MG/VIAL IV ONE (09:53)
[2021-02-11] MEDS ORDERED: ONDANSETRON HCL 4MG/2ML INJ ONE (11:25)
[2021-02-11] MEDS ORDERED: METOCLOPRAMIDE HCL 10MG/2ML VIAL ONE (11:25)
[2021-02-11] MEDS ORDERED: NEOSTIGMINE METHYLSULFATE 1MG/ML 10 ML VIAL ONE (11:34)
[2021-02-11] MEDS ORDERED: FENTANYL CITRATE/PF 50MCG/ML 2ML VIAL ONE (11:39)
[2021-02-11] MEDS ORDERED: DIPHENHYDRAMINE INJ IV PRN (13:00)
[2021-02-11] MEDS ORDERED: NALOXONE INJ IV PRN (13:00)
[2021-02-11] MEDS ORDERED: HYDROMORPHONE PCA 10MG/50ML IV PRN (13:00)
[2021-02-11] MEDS ORDERED: ONDANSETRON INJ IV PRN (13:00)
[2021-02-11] MEDS ORDERED: NACL KCL IV SCH (13:30)
[2021-02-11] MEDS ORDERED: DEXT IV SCH (13:30)
[2021-02-11] MEDS: ACETAMINOPHEN 500MG TABLET PO SCH (14:00)
[2021-02-11 16:00] VITALS: BP 147/89
[2021-02-11 20:00] VITALS: BP 146/91
[2021-02-11 20:05] VITALS: BP 147/89
[2021-02-12] VITALS (7 sets, daily range): BP systolic 98–153; BP diastolic 53–86
[2021-02-12] MEDS ORDERED: NITROGLYCERIN 0.4MG TABLET SL SL PRN (03:15)
[2021-02-12] MEDS ORDERED: ZOLPIDEM TARTRATE 5MG TABLET PO PRN (03:15)
[2021-02-12] MEDS ORDERED: IBUPROFEN 800MG TABLET PO PRN (03:15)
[2021-02-12] MEDS: LACTATED RINGERS 1,000 ML IV SCH ×3 (04:02→23:56)
[2021-02-12] MEDS: ALPRAZOLAM 0.5 MG TABLET PO PRN (04:36)
[2021-02-12] MEDS ORDERED: METFORMIN HCL 500MG TABLET PO PRN (07:15)
[2021-02-12] MEDS ORDERED: ACYCLOVIR 400 MG TABLET PO PRN (07:15)
[2021-02-12] MEDS: LEVOTHYROXINE SODIUM 150MCG TABLET PO SCH (07:18)
[2021-02-12 07:24] LABS: BASOPHILS % 0.1 % (0.0-2.0); EOSINOPHILS % 0.1 % (0.0-5.0); HEMATOCRIT. 34.4 % (36.0-48.0); HEMOGLOBIN. 11.6 g/dL (12.0-16.0); LYMPHOCYTES % 14.2 % (20.0-50.0); MEAN CORPUSCULAR HEMOGLOBIN 30.9 pg (28.0-32.0); MEAN CORPUSCULAR VOLUME 91.8 fL (81.0-99.0); MEAN PLATELET VOLUME 8.4 fl (7.4-10.4); MONOCYTES % 9.8 % (2.0-8.0); NEUTROPHILS % 75.8 % (40.0-76.0); PLATELET 195 x1000/uL (130-400); RED BLOOD CELL COUNT 3.74 mill/uL (4.2-5.4); RED CELL DISTRIBUTION WIDTH 12.4 % (11.6-14.6)
[2021-02-12 08:44] LABS: CHLORIDE 108 mEq/L (98-107)
[2021-02-12] MEDS: PAROXETINE HCL 10MG TABLET PO SCH (08:54)
[2021-02-12] MEDS: CHOLECALCIFEROL (D3) 1000 UNIT TABLET PO SCH (08:54)
[2021-02-12] MEDS: CARVEDILOL 12.5MG TABLET PO SCH ×2 (08:55→21:00)
[2021-02-12] MEDS: POTASSIUM CHLORIDE 8 MEQ TABLET.SA PO SCH (08:56)
[2021-02-12] MEDS: SPIRONOLACTONE 50MG TABLET PO SCH (08:56)
[2021-02-12] MEDS: DOCUSATE SODIUM SUGAR FREE 100MG/10ML UDC PO SCH ×2 (08:57→16:31)
[2021-02-12] MEDS: AMLODIPINE 5MG TABLET PO SCH (08:57)
[2021-02-12] MEDS: FUROSEMIDE 40MG TABLET PO SCH (08:57)
[2021-02-12] MEDS ORDERED: POTASSIUM CHLORIDE 20MEQ TABLET SR PO NR (09:30)
[2021-02-12] MEDS ORDERED: NALOXONE HCL 0.4MG/ML VIAL IV PRN (13:30)
[2021-02-12] MEDS: HYDROCODONE/ACETAMINOPHEN 10/325MG TABLET PO PRN (18:34)
[2021-02-12] MEDS ORDERED: ATORVASTATIN CALCIUM 40MG TABLET PO SCH (21:00)
[2021-02-12] MEDS: ACETAMINOPHEN 500MG TABLET PO SCH (21:41)
[2021-02-13] VITALS: BP 105/56
[2021-02-13] MEDS: HYDROCODONE/ACETAMINOPHEN 10/325MG TABLET PO PRN ×2 (00:31→06:33)
[2021-02-13] MEDS: ACETAMINOPHEN 500MG TABLET PO SCH (06:00)
[2021-02-13] MEDS: LEVOTHYROXINE SODIUM 150MCG TABLET PO SCH (06:31)
[2021-02-13 07:17] LABS: BASOPHILS % 0.3 % (0.0-2.0); EOSINOPHILS % 1.1 % (0.0-5.0); HEMATOCRIT. 31.5 % (36.0-48.0); HEMOGLOBIN. 10.5 g/dL (12.0-16.0); LYMPHOCYTES % 38.4 % (20.0-50.0); MEAN CORPUSCULAR HEMOGLOBIN 31.7 pg (28.0-32.0); MEAN CORPUSCULAR VOLUME 94.8 fL (81.0-99.0); MEAN PLATELET VOLUME 8.4 fl (7.4-10.4); MONOCYTES % 9.2 % (2.0-8.0); PLATELET 160 x1000/uL (130-400); RED BLOOD CELL COUNT 3.32 mill/uL (4.2-5.4); RED CELL DISTRIBUTION WIDTH 12.5 % (11.6-14.6)
[2021-02-13 07:29] LABS: CHLORIDE 108 mEq/L (98-107)
[2021-02-13 08:00] VITALS: BP 116/68
[2021-02-13] MEDS: FUROSEMIDE 40MG TABLET PO SCH (09:00)
[2021-02-13] MEDS: CHOLECALCIFEROL (D3) 1000 UNIT TABLET PO SCH (09:05)
[2021-02-13] MEDS: DOCUSATE SODIUM SUGAR FREE 100MG/10ML UDC PO SCH (09:05)
[2021-02-13] MEDS: ALPRAZOLAM 0.5 MG TABLET PO PRN (09:06)
[2021-02-13] MEDS: SPIRONOLACTONE 50MG TABLET PO SCH (09:07)
[2021-02-13] MEDS: AMLODIPINE 5MG TABLET PO SCH (09:07)
[2021-02-13] MEDS: CARVEDILOL 12.5MG TABLET PO SCH (09:08)
[2021-02-13] MEDS: PAROXETINE HCL 10MG TABLET PO SCH (09:08)
[2021-02-13] MEDS: POTASSIUM CHLORIDE 8 MEQ TABLET.SA PO SCH (09:18)
[2021-02-13 10:19] VITALS: BP 112/64
[2021-02-13] MEDS: LACTATED RINGERS 1,000 ML IV SCH (10:30)
[2021-02-13 12:00] VITALS: BP 112/64
== END 2021-02-13 12:15 | disposition home or self-care (01) | DRG 742 ==
LOC: OR 06:08 → 6EST 14:19
PROVIDERS: ADMIT Obstetrics & Gynecology Obstetrics; ATTEND Obstetrics & Gynecology Obstetrics
PROC: 0UT9FZZ Resection of Uterus, Via Natural or Artificial Opening With Percutaneous Endoscopic Assistance (ICD-10-PCS; principal; 2021-02-11)
PROC: 0UT7FZZ Resection of Bilateral Fallopian Tubes, Via Natural or Artificial Opening With Percutaneous Endoscopic Assistance (ICD-10-PCS; 2021-02-11)
PROC: 8E0W4CZ Robotic Assisted Procedure of Trunk Region, Percutaneous Endoscopic Approach (ICD-10-PCS; 2021-02-11)
DX: N85.01 Benign endometrial hyperplasia (principal); I50.32 Chronic diastolic (congestive) heart failure; I42.9 Cardiomyopathy, unspecified; I34.0 Nonrheumatic mitral (valve) insufficiency; I11.0 Hypertensive heart disease with heart failure; Z90.710 Acquired absence of both cervix and uterus; Z88.1 Allergy status to other antibiotic agents; Z88.8 Allergy status to other drugs, medicaments and biological substances; Z82.49 Family history of ischemic heart disease and other diseases of the circulatory system; Z79.899 Other long term (current) drug therapy; Z88.5 Allergy status to narcotic agent; Z91.041 Radiographic dye allergy status; Z95.810 Presence of automatic (implantable) cardiac defibrillator
CPT/HCPCS: 36415; 80048; 81003; 81025; 82962; 83735; 85025; 86850; 86900; 87426; 88307; 93005; J0690; J1100; J1170; J2405; J2710; J2765; J3010; J3490; J7120; P9047; Q9968

== ENCOUNTER 2024-02-15 11:39 | Inpatient (IN) | payer MEDICARE, MEDICAID ==
[~2024-02-15] VITALS: Ht 162.6 cm; Wt 69.9 kg
[~2024-02-15 11:39] MED LIST changes: -ACYC200C PO; +ACYC200C31 PO; -CYCL10TA7 PO; +CYCL5TAB PO; +DICY-18 MT; +FERR325T30 PO; -IBUP-2030 PO; +NPH,100I SQ; +PANT40TA51 PO; -PARO30TA76 PO; +PARO30TA99 PO; +QUET50TA PO
[2024-02-15] MEDS ORDERED: MORPHINE SULFATE 4 MG/ML INJ (FOR IV/IM USE) IV STA (12:16)
[2024-02-15] MEDS ORDERED: ONDANSETRON HCL 4MG/2ML INJ IV STA (12:16)
[2024-02-15 13:17] LABS: BASOPHILS % 0.4 % (0.0-2.0); EOSINOPHILS % 1.5 % (0.0-5.0); HEMATOCRIT. 38.6 % (36.0-48.0); HEMOGLOBIN. 12.9 g/dL (12.0-16.0); LYMPHOCYTES % 24.9 % (20.0-50.0); MEAN CORPUSCULAR HEMOGLOBIN 31.7 pg (28.0-32.0); MEAN CORPUSCULAR HGB CONC 33.5 g/dL (31.0-37.0); MEAN CORPUSCULAR VOLUME 94.6 fL (81.0-99.0); MEAN PLATELET VOLUME 8.6 fl (7.4-10.4); MONOCYTES % 7.6 % (2.0-8.0); NEUTROPHILS % 65.6 % (40.0-76.0); PLATELET 221 x1000/uL (130-400); RED BLOOD CELL COUNT 4.08 mill/uL (4.2-5.4); RED CELL DISTRIBUTION WIDTH 14.2 % (11.6-14.6); WHITE BLOOD COUNT 9.1 x1000/uL (4.5-11.0)
[2024-02-15 13:22] LABS: INR 0.9; PROTHROMBIN TIME 10.4 sec (9.6-11.0)
[2024-02-15 13:25] LABS: CHLORIDE 110 mEq/L (98-107); POTASSIUM 3.8 mEq/L (3.5-5.1); SODIUM 141 mEq/L (136-145)
[2024-02-15 13:26] LABS: CALCIUM 9.9 mg/dL (8.7-10.4); CARBON DIOXIDE 26 mEq/L (21-32)
[2024-02-15 13:31] LABS: GLUCOSE 125 mg/dL (70-105); UREA NITROGEN BLOOD 20 mg/dL (9-23)
[2024-02-15 13:33] LABS: ALANINE AMINOTRANSFERASE 23 IU/L (10-49); ALBUMIN 4.8 g/dL (3.2-4.8); ASPARTATE AMINOTRANSFERASE 20 IU/L (<34); BILIRUBIN DIRECT 0.1 mg/dL (<=3.0); BILIRUBIN TOTAL 0.5 mg/dL (0.1-1.0); PROTEIN TOTAL 7.6 g/dL (6.0-8.3)
[2024-02-15] MEDS: SODIUM CHLORIDE 0.9% 1,000 ML IV ONE (14:22)
[2024-02-15] MEDS: ONDANSETRON HCL 4MG/2ML INJ IV NR (14:29)
[2024-02-15] MEDS: MORPHINE SULFATE 4 MG/ML INJ (FOR IV/IM USE) IV NR (14:30)
[2024-02-15] MEDS ORDERED: IOHEXOL-300 100 ML BOTTLE ONE (16:40)
[2024-02-15] MEDS ORDERED: IPRATROPIUM/ALBUTEROL 0.5-3(2.5)MG/3ML NEB HHN PRN (17:15)
[2024-02-15] MEDS ORDERED: ACETAMINOPHEN 325MG TABLET PO PRN ×2 (17:15)
[2024-02-15] MEDS ORDERED: CLONIDINE 0.1MG TABLET PO PRN (17:15)
[2024-02-15] MEDS ORDERED: ONDANSETRON HCL 4MG/2ML INJ IV PRN (17:15)
[2024-02-15] MEDS ORDERED: DEXTROSE 50% WATER 50ML SYRINGE IV PRN (17:15)
[2024-02-15] MEDS ORDERED: HYDROCODONE/ACETAMINOPHEN 7.5/325MG TABLET PO PRN (17:15)
[2024-02-15] MEDS ORDERED: DOCUSATE SODIUM 100MG CAPSULE PO PRN (17:15)
[2024-02-15] MEDS ORDERED: GUAIFENESIN 200MG/10ML SUGAR FREE UDC PO PRN (17:15)
[2024-02-15] MEDS ORDERED: NALOXONE HCL 0.4MG/ML VIAL IV PRN (18:00)
[2024-02-15] MEDS ORDERED: NITROGLYCERIN 0.4MG TABLET SL SL PRN ×2 (18:30→18:45)
[2024-02-15 19:42] LABS: PHOSPHORUS 3.3 mg/dL (2.5-4.9)
[2024-02-15 20:00] VITALS: BP 165/92; PULSE 71; RESP 20; TEMP 97.8
[2024-02-15] MEDS: SPIRONOLACTONE 50MG TABLET PO SCH (20:00)
[2024-02-15] MEDS: FUROSEMIDE 40MG TABLET PO SCH (20:00)
[2024-02-15] MEDS: BLOOD SUGAR DIAGNOSTIC STRIP TEST SCH (21:00)
[2024-02-15] MEDS: INSULIN LISPRO 100 UNITS/ML SUBCUT SCH (21:00)
[2024-02-15] MEDS: ATORVASTATIN CALCIUM 40MG TABLET PO SCH (23:29)
[2024-02-15] MEDS: ZOLPIDEM TARTRATE 5MG TABLET PO SCH (23:29)
[2024-02-15] MEDS: QUETIAPINE FUMARATE 50MG TABLET PO SCH (23:29)
[2024-02-15] MEDS: LEVOTHYROXINE SODIUM 150MCG TABLET PO SCH (23:30)
[2024-02-15] MEDS: AMLODIPINE 5MG TABLET PO SCH (23:31)
[2024-02-15] MEDS: MORPHINE SULFATE 2 MG/ML INJ (NOT FOR IM USE) IV PRN (23:44)
[2024-02-16] VITALS: BP 155/82; PULSE 74; RESP 16; TEMP 97.4
[2024-02-16 02:02] LABS: TROPONIN I HIGH SENSITIVITY 4 ng/L (3.0-34)
[2024-02-16 02:03] LABS: CREATINE KINASE 53 IU/L (34-145)
[2024-02-16 03:20] VITALS: BP 165/92; PULSE 71; RESP 20; TEMP 97.8
[2024-02-16 04:00] VITALS: BP 105/64; PULSE 74; RESP 16; TEMP 98.3
[2024-02-16 07:45] LABS: BASOPHILS % 0.5 % (0.0-2.0); EOSINOPHILS % 2.5 % (0.0-5.0); HEMATOCRIT. 36.5 % (36.0-48.0); HEMOGLOBIN. 11.8 g/dL (12.0-16.0); LYMPHOCYTES % 34.6 % (20.0-50.0); MEAN CORPUSCULAR HGB CONC 32.3 g/dL (31.0-37.0); MEAN CORPUSCULAR VOLUME 95.8 fL (81.0-99.0); MEAN PLATELET VOLUME 8.6 fl (7.4-10.4); MONOCYTES % 10.6 % (2.0-8.0); NEUTROPHILS % 51.8 % (40.0-76.0); PLATELET 186 x1000/uL (130-400); RED BLOOD CELL COUNT 3.81 mill/uL (4.2-5.4); WHITE BLOOD COUNT 7.1 x1000/uL (4.5-11.0)
[2024-02-16 08:00] VITALS: BP 153/86; PULSE 76; RESP 19; TEMP 97.5
[2024-02-16 08:02] LABS: TROPONIN I HIGH SENSITIVITY 4 ng/L (3.0-34)
[2024-02-16 08:03] LABS: CREATINE KINASE 48 IU/L (34-145)
[2024-02-16 08:06] LABS: T4 FREE 1.23 ng/dL (0.89-1.76); THYROID STIMULATING HORMONE 1.03 uIU/mL (0.55-4.78)
[2024-02-16 08:07] LABS: ALBUMIN 4.3 g/dL (3.2-4.8)
[2024-02-16 08:10] LABS: ALANINE AMINOTRANSFERASE 18 IU/L (10-49); ALBUMIN 4.3 g/dL (3.2-4.8); ASPARTATE AMINOTRANSFERASE 19 IU/L (<34); BILIRUBIN DIRECT 0.1 mg/dL (<=3.0); BILIRUBIN TOTAL 0.4 mg/dL (0.1-1.0); PROTEIN TOTAL 6.6 g/dL (6.0-8.3)
[2024-02-16] MEDS: PANTOPRAZOLE SODIUM 40 MG/VIAL IV SCH (09:36)
[2024-02-16] MEDS: LORAZEPAM 0.5MG TABLET PO PRN (11:32)
[2024-02-16 12:00] VITALS: BP 141/85; PULSE 80; RESP 18; TEMP 97.5
[2024-02-16 13:15] LABS: *AMPHETAMINES SCREEN URINE NEGATIVE (NEGATIVE); *BARBITURATES SCREEN URINE NEGATIVE (NEGATIVE); *BENZODIAZEPINES SCREEN URINE PRESUMPTIVE POSITIVE (NEGATIVE); *COCAINE SCREEN URINE NEGATIVE (NEGATIVE)
[2024-02-16 13:16] LABS: CANNABINOID URINE SCREEN NEGATIVE (NEGATIVE); ECSTASY MDMA SCREEN URINE NEGATIVE (NEGATIVE); METHADONE URINE SCREEN NEGATIVE (NEGATIVE); OPIATES URINE SCREEN PRESUMPTIVE POSITIVE (NEGATIVE); PHENCYCLIDINE URINE SCREEN NEGATIVE (NEGATIVE)
[2024-02-16] MEDS ORDERED: NON FORMULARY PATIENT HOME MED XX SCH (13:30)
[2024-02-16 16:00] VITALS: BP 121/80; PULSE 94; RESP 18; TEMP 97.7
[2024-02-16] MEDS ORDERED: ONDANSETRON HCL 4MG/2ML INJ IV PRN (17:45)
[2024-02-16] MEDS: SACUBITRIL/VALSARTAN 24MG/26MG TABLET PO SCH (21:31)
[2024-02-17] MEDS ORDERED: PANTOPRAZOLE SODIUM 40 MG/VIAL IV SCH (09:00)
[2024-02-17] MEDS: FAMOTIDINE 20MG/2ML VIAL IV SCH (09:18)
[2024-02-17 09:19] VITALS: RESP 18
[2024-02-17] MEDS: PAROXETINE HCL 10MG TABLET PO SCH (09:41)
[2024-02-17] MEDS ORDERED: PANT40TA51 PO (14:56)
[2024-02-17] MEDS ORDERED: SUCR1TAB30 PO (14:56)
[2024-02-17 16:01] VITALS: BP 135/63; PULSE 90; TEMP 98.7; O2SAT 98
[2024-02-17] MEDS ORDERED: SUCRALFATE 1G TABLET PO SCH (17:20)
[2024-02-17] MEDS ORDERED: PANTOPRAZOLE 40MG DR TABLET PO SCH (21:00)
[2024-02-17] MEDS ORDERED: SENNOSIDES/DOCUSATE SOD 8.6/50MG TABLET PO SCH (21:00)
== END 2024-02-17 17:35 | disposition home or self-care (01) | DRG 383 ==
LOC: ER 11:39 → 5WST 16:21 → EDBEDREQ 16:25 → EDBEDREQTM 16:25 → 6EST 21:13
PROVIDERS: ADMIT Internal Medicine; ATTEND Internal Medicine
DX: K27.9 Peptic ulcer, site unspecified, unspecified as acute or chronic, without hemorrhage or perforation (principal); E43 Unspecified severe protein-calorie malnutrition; I50.32 Chronic diastolic (congestive) heart failure; I42.9 Cardiomyopathy, unspecified; K29.50 Unspecified chronic gastritis without bleeding; E78.5 Hyperlipidemia, unspecified; E11.9 Type 2 diabetes mellitus without complications; I25.10 Atherosclerotic heart disease of native coronary artery without angina pectoris; I11.0 Hypertensive heart disease with heart failure; N28.1 Cyst of kidney, acquired; J44.9 Chronic obstructive pulmonary disease, unspecified; E03.9 Hypothyroidism, unspecified; F31.9 Bipolar disorder, unspecified; R07.9 Chest pain, unspecified; R07.81 Pleurodynia; F41.9 Anxiety disorder, unspecified; M79.7 Fibromyalgia; Z66 Do not resuscitate; Z79.899 Other long term (current) drug therapy; Z95.810 Presence of automatic (implantable) cardiac defibrillator; Z90.710 Acquired absence of both cervix and uterus; Z99.81 Dependence on supplemental oxygen; Z68.26 Body mass index [BMI] 26.0-26.9, adult
CPT/HCPCS: 36415; 71045; 73560; 74177; 76700; 80048; 80061; 80076; 80305; 82040; 82550; 82962; 83036; 83735; 84100; 84439; 84443; 84484; 85025; 93005; 93970; 99285; J1815; J2270; J2405; J2470; J3490; J7030; Q9967